=== PATIENT | male | born 1950 | race African-American/Black ===

== ENCOUNTER 2017-12-18 11:41 | Emergency (ER) | payer OTHER ==
[~2017-12-18] VITALS: Ht 185.4 cm; Wt 163.3 kg
[2017-12-18] MEDS ORDERED: IPRATRPIUM/ALBUTEROL 0.5/2.5MG 3 ML NEBU. NEB ONE (12:00)
--- NOTE | 2017-12-18 12:16 | RAD ---
INDICATION: Short of air. TECHNIQUE: Upright portable chest radiograph was obtained. No comparison is available. FINDINGS: There is left basilar atelectasis or less likely infiltrate. There is a band of linear atelectasis in the right midlung field as well. This could also be a small amount of fluid along the fissure. The heart is not enlarged and there is no heart failure. Bony structures are intact. Leads overlie the patient. IMPRESSION: Left basilar atelectasis or less likely infiltrate, mild. Band of atelectasis in the right midlung field as well. Electronically signed by: Pete Osorio MD (12/18/2017 12:13 PM) [id number]
[2017-12-18 12:24] LABS: BASO # 0.1 x10^3/uL (0.0-0.2); BASO % 1 % (0-3); EOS # 0.3 x10^3/uL (0.0-0.7); EOS % 2 % (0-3); HEMATOCRIT 30.7 % (39.0-53.0); HEMOGLOBIN 9.7 g/dL (13.0-17.5); LYMPH # 2.4 x10^3/uL (1.0-4.8); LYMPH % 19 % (24-48); MEAN CORPUSCULAR HEMOGLOBIN 23 pg (25-35); MEAN CORPUSCULAR HGB CONC 31 g/dL (31-37); MEAN CORPUSCULAR VOLUME 72 fL (79-100); MONO # 1.4 x10^3/uL (0.0-1.1); MONO % 11 % (0-9); NEUT # 8.7 x10^3uL (1.8-7.7); NEUT % 68 % (31-73); PLATELET COUNT 296 x10^3/uL (140-400); RED CELL DISTRIBUTION WIDTH 21.9 % (11.5-14.5); WHITE BLOOD COUNT 12.8 x10^3/uL (4.0-11.0)
[2017-12-18 12:49] LABS: ALBUMIN 2.9 g/dL (3.4-5.0); CALCIUM 9.9 mg/dL (8.5-10.1); CREATININE 1.9 mg/dL (0.7-1.3); DIRECT BILIRUBIN 0.1 mg/dL (0.0-0.2); GFR 43.3; POTASSIUM 4.2 mmol/L (3.5-5.1); TOTAL BILIRUBIN 0.3 mg/dL (0.2-1.0); TOTAL PROTEIN 7.3 g/dL (6.4-8.2)
[2017-12-18 12:58] LABS: HYPOCHROMIA MOD; PLT ESTIMATE ADEQUATE (ADEQUATE)
[2017-12-18 12:59] LABS: ANISOCYTOSIS MOD; MICROCYTOSIS SLIGHT; POLYCHROMASIA SLIGHT
[2017-12-18 13:02] LABS: OVALOCYTES OCC; TEAR DROP CELLS OCC
[2017-12-18] MEDS ORDERED: PRED50TA PO (14:01)
--- NOTE | 2017-12-18 14:02 | PHYS DOC ---
Past History Past Medical History: CHF, COPD, Diabetes, Hypertension, Stroke Past Surgical History: Cholecystectomy Alcohol Use: None Drug Use: None Adult General Chief Complaint Chief Complaint: SHORTNESS OF BREATH HPI HPI 66 yo M with a hx of copd, dm, hld, chf, and cad presenting to the ED today with worsening SOA. He is SOA on exertion. Alleviated by rest. He denies any chest pain or chest tightness. He shortness of breath is been going on for about a week but is worsened over the past few days. He has been taking 60 mg of furosemide at home for his CHF. Review of systems is negative for chest pain or tightness neck pain back pain or shoulder pain. He denies epigastric abdominal pain. He denies fevers chills diaphoresis nausea or vomiting. All other review of systems is negative unless otherwise noted in history of present illness. ED course: 66-year-old male presenting the emergency department today with worsening shortness of breath. On arrival the patient's afebrile with a normal heart rate. Blood pressure within normal limits. Saturating 96% on room air. On examination he is breathing comfortably. Nontoxic. Lungs have wheezing bilaterally with prolonged after a phase. No crackles. No JVD present in the neck. Regular rate and rhythm on cardiac auscultation. Abdomen is soft and nontender. 1+ edema in the legs. EKG obtained and reviewed by myself shows sinus rhythm with a regular rate. ST segments are congruent. Variable baseline in lead aVF but the second complex shows isoelectric baseline. No previous available at this time. Blood work obtained which shows mild nonspecific leukocytosis. Chest x-ray read by our radiologist who favors atelectasis but cannot rule out infiltrate. Clinically, the patient does not have a fever he does not have productive sputum. I feel that infiltrate is less likely as well clinically. The patient was given a DuoNeb in the emergency department which improved his symptoms significantly. Blood work shows minimally elevated proBNP without baseline for comparison. Creatinine also mildly elevated without baseline for comparison. I offered to admit the patient to the hospital for serial troponins and IV corticosteroids for treatment for COPD exacerbation however the patient declined and desires to go home. We will prescribe the patient oral corticosteroids. I encouraged him to use his nebulizer and follow up with his doctor in a few days.The patient has been examined and was not found to have an emergency medical condition. The patient was then discharged home in stable condition to follow up with their primary care physician over the next 2-3 days. They were to return if their symptoms worsened or if they were concerned for any reason. [id number] discharge instructions and return precautions were given. Patient's questions were answered to their satisfaction. Patient is comfortable with plan. Review of Systems Review of Systems SEE ABOVE. Current Medications Current Medications Current Medications Medications (Trade) Dose Ordered Sig/Kayla Start Time Stop Time Status Last Admin Dose Admin Albuterol/ Ipratropium (Duoneb) 3 ml 1X ONCE 12/18/17 12:00 12/18/17 12:01 DC 12/18/17 11:55 3 ML Allergies Allergies Allergies Coded Allergies Type Severity Reaction Last Updated Verified acetaminophen Allergy Intermediate 12/18/17 Yes hydrocodone Allergy Intermediate 12/18/17 Yes penicillin G Allergy Intermediate 12/18/17 Yes Physical Exam Physical Exam SEE ABOVE Constitutional: Well developed, well nourished, no acute distress, non-toxic appearance. [] HENT: Normocephalic, atraumatic, bilateral external ears normal, oropharynx moist, no oral exudates, nose normal. [] Eyes: PERRLA, EOMI, conjunctiva normal, no discharge. [] Neck: Normal range of motion, no tenderness, supple, no stridor. [] Cardiovascular:Heart rate regular rhythm, no murmur [] Lungs & Thorax: Wheezing bilaterally without crackles. Abdomen: Bowel sounds normal, soft, no tenderness, no masses, no pulsatile masses. [] Skin: Warm, dry, no erythema, no rash. [] Back: No tenderness, no CVA tenderness. [] Extremities: No tenderness, no cyanosis, no clubbing, ROM intact, no edema. [] Neurologic: Alert and oriented X 3, normal motor function, normal sensory function, no focal deficits noted. [] Psychologic: Affect normal, judgement normal, mood normal. [] Current Patient Data Vital Signs Vital Signs Date Time Temp Pulse Resp B/P (MAP) Pulse Ox O2 Delivery O2 Flow Rate FiO2 12/18/17 13:27 83 20 144/79 (100) 98 Room Air 12/18/17 11:56 98.0 Lab Results Laboratory Tests Test 12/18/17 12:13 White Blood Count 12.8 x10^3/uL (4.0-11.0) H Red Blood Count 4.30 x10^6/uL (4.30-5.70) Hemoglobin 9.7 g/dL (13.0-17.5) L Hematocrit 30.7 % (39.0-53.0) L Mean Corpuscular Volume 72 fL (79-100) L Mean Corpuscular Hemoglobin 23 pg (25-35) L Mean Corpuscular Hemoglobin Concent 31 g/dL (31-37) Red Cell Distribution Width 21.9 % (11.5-14.5) H Platelet Count 296 x10^3/uL (140-400) Neutrophils (%) (Auto) 68 % (31-73) Lymphocytes (%) (Auto) 19 % (24-48) L Monocytes (%) (Auto) 11 % (0-9) H Eosinophils (%) (Auto) 2 % (0-3) Basophils (%) (Auto) 1 % (0-3) Neutrophils # (Auto) 8.7 x10^3uL (1.8-7.7) H Lymphocytes # (Auto) 2.4 x10^3/uL (1.0-4.8) Monocytes # (Auto) 1.4 x10^3/uL (0.0-1.1) H Eosinophils # (Auto) 0.3 x10^3/uL (0.0-0.7) Basophils # (Auto) 0.1 x10^3/uL (0.0-0.2) Platelet Estimate Adequate (ADEQUATE) Large Platelets Occ Polychromasia Slight Hypochromasia Mod Anisocytosis Mod Microcytosis Slight Tear Drop Cells Occ Ovalocytes Occ Sodium Level 141 mmol/L (136-145) Potassium Level 4.2 mmol/L (3.5-5.1) Chloride Level 105 mmol/L (98-107) Carbon Dioxide Level 30 mmol/L (21-32) Anion Gap 6 (6-14) Blood Urea Nitrogen 25 mg/dL (8-26) Creatinine 1.9 mg/dL (0.7-1.3) H Estimated GFR (Cockcroft-Gault) 43.3 Glucose Level 107 mg/dL (70-99) H Calcium Level 9.9 mg/dL (8.5-10.1) Total Bilirubin 0.3 mg/dL (0.2-1.0) Direct Bilirubin 0.1 mg/dL (0.0-0.2) Aspartate Amino Transferase (AST) 15 U/L (15-37) Alanine Aminotransferase (ALT) 19 U/L (16-63) Alkaline Phosphatase 170 U/L (46-116) H Troponin I Quantitative < 0.017 ng/mL (0-0.055) FC-Sko-I-Type Natriuretic Peptide 504 pg/mL (0-124) H Total Protein 7.3 g/dL (6.4-8.2) Albumin 2.9 g/dL (3.4-5.0) L Lipase 157 U/L (73-393) EKG EKG [] Radiology/Procedures Radiology/Procedures [] Course & Med Decision Making Course & Med Decision Making Pertinent Labs and Imaging studies reviewed. (See chart for details) [] Dragon Disclaimer Dragon Disclaimer This electronic medical record was generated, in whole or in part, using a voice recognition dictation system. Departure Departure: Impression: Primary Impression: COPD with exacerbation Disposition: HOME, SELF-CARE Condition: STABLE Referrals: PCP,NO (PCP) Patient Instructions: Chronic Obstructive Pulmonary Disease Exacerbation, Easy- to-Read Additional Instructions: Thank you for allowing us to participate in your care today. Followup with your primary care physician in 3 days if your symptoms do not improve. Call your Primary Doctor tomorrow and inform them of your visit today. If you do not have a primary care provider you can ask for a list of our primary care providers. Return to the emergency department you have any new or concerning findings. This should be evaluated by the primary care physician and any necessary consulting services for continued management within a few days after discharge. Return to emergency room if you have any new or concerning symptoms including but not limited to fever, chills, nausea, vomiting, intractable pain, any new rashes, chest pain, shortness of air, uncontrolled bleeding, difficulty breathing, and/or vision loss. If at any time, you are having difficulty getting into your primary care doctor or a specialist, return to the emergency department. Scripts Prednisone (PREDNISONE) 50 Mg Tablet 1 TAB PO DAILY, #5 TAB Prov: JAZMIN HURD MD 12/18/17 JAZMIN HURD MD Dec 18, 2017 14:02
--- NOTE | 2017-12-18 14:03 | EKG ---
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
[2017-12-18 14:12] VITALS: BP 155/93
== END 2017-12-18 14:13 | disposition home or self-care (01) ==
LOC: ER 11:41
DX: J44.1 Chronic obstructive pulmonary disease with (acute) exacerbation (principal); E11.9 Type 2 diabetes mellitus without complications; I11.0 Hypertensive heart disease with heart failure; I50.9 Heart failure, unspecified; I25.10 Atherosclerotic heart disease of native coronary artery without angina pectoris; E78.5 Hyperlipidemia, unspecified; Z86.73 Personal history of transient ischemic attack (TIA), and cerebral infarction without residual deficits; Z94.9 Transplanted organ and tissue status, unspecified; Z88.0 Allergy status to penicillin; Z88.5 Allergy status to narcotic agent; Z88.6 Allergy status to analgesic agent
CPT/HCPCS: 36415; 71045; 80048; 80076; 83690; 83880; 84484; 85025; 93005; 94640; 99285; J7620

== ENCOUNTER 2018-04-02 06:09 | Emergency (ER) | payer MEDICARE, OTHER ==
[~2018-04-02] VITALS: Ht 185.4 cm; Wt 163.3 kg
[~2018-04-02 06:09] MED LIST: PRED50TA PO
--- NOTE | 2018-04-02 06:30 | PHYS DOC ---
Past History Past Medical History: CHF, COPD, Diabetes, Hypertension, Stroke Past Surgical History: Cholecystectomy Alcohol Use: None Drug Use: None Adult General Chief Complaint Chief Complaint: left-sided weakness HPI HPI 67-year-old male patient with history of CHF, hypertension, previous CVA, diabetes resident of [place] [facility] states he woke up at 2 AM because of severe headache as 10 over 10 and went to the bathroom without problem. Patient states he was sitting on the chair and his headache gradually improved but at 0530 the staff of jail noticed that he is having problem with left side weakness. Patient complaining of left fascial numbness and weakness of left upper and lower extremity that is worse than his usual. Review of Systems Review of Systems Constitutional: Denies fever or chills [] Eyes: Denies change in visual acuity, redness, or eye pain [] HENT: Denies nasal congestion or sore throat [] Respiratory: Denies cough or shortness of breath [] Cardiovascular: No additional information not addressed in HPI [] GI: Denies abdominal pain, nausea, vomiting, bloody stools or diarrhea [] : Denies dysuria or hematuria [] Musculoskeletal: Denies back pain or joint pain [] Integument: Denies rash or skin lesions [] Neurologic: Reports headache, focal weakness, sensory changes [] Endocrine: Denies polyuria or polydipsia [] All other systems were reviewed and found to be within normal limits, except as documented in this note. Allergies Allergies Allergies Coded Allergies Type Severity Reaction Last Updated Verified acetaminophen Allergy Intermediate 12/18/17 Yes hydrocodone Allergy Intermediate 12/18/17 Yes penicillin G Allergy Intermediate 12/18/17 Yes Physical Exam Physical Exam Constitutional: Well nourished, mild distress, non-toxic appearance. [] HENT: Normocephalic, atraumatic, oropharynx moist, no oral exudates, nose normal. [] Eyes: PERRLA, EOMI, conjunctiva normal, no discharge. [] Neck: Normal range of motion, no tenderness, supple, no stridor. [] Cardiovascular:Heart rate regular rhythm, no murmur [] Lungs & Thorax: Bilateral breath sounds clear to auscultation [] Abdomen: Bowel sounds normal, soft, no tenderness, no masses, no pulsatile masses. [] Skin: Warm, dry, no erythema, no rash. [] Back: No tenderness, no CVA tenderness. [] Extremities: No tenderness, no cyanosis, no clubbing, ROM intact, no edema. [] Neurologic: Alert and oriented X 3, very mild facial weakness left side, right lower extremities weakness and unable to hold his leg for 5 second bilaterally states he has chronic pain in right leg and never was able to use his leg, no paresthesia, NIH scale of 5 because of right lower and left lower extremity weakness and facial drooping Psychologic: Affect normal, judgement normal, mood normal. [] EKG EKG EKG interpreted by me. EKG at 0 7/10 showed normal sinus rhythm at rate of 77, poor R-wave progress in anteroseptal leads, no acute ST and T-wave abnormalities [] Radiology/Procedures Radiology/Procedures [][address] [address] IMAGING REPORT Signed PATIENT: JOHN AWAD ACCOUNT: [id number] : 1950 LOCATION: ER AGE: 67 SEX: M EXAM STATUS: REG ER ORD. PHYSICIAN: MATTHEW ADAMS MD REASON: Left side weakness, confusion PROCEDURE: CT CODE STROKE HEAD WO EXAM: CT HEAD WITHOUT CONTRAST. HISTORY: Left-sided weakness, altered mental status. TECHNIQUE: Computed tomography of the head was performed without intravenous contrast. COMPARISON: None. FINDINGS: There is no intracranial hemorrhage. Hypoattenuation within the white matter indicates moderate to severe chronic microangiopathic change. Prominence of the lateral ventricles and hemispheric sulci indicates moderate atrophy. The visualized paranasal sinuses appear clear. The orbits are unremarkable. The temporal bones are unremarkable. The calvarium reveals no suspicious lesions. IMPRESSION: 1. No acute intracranial findings. 2. Moderate atrophy and moderate to severe chronic microangiopathic white matter change. *One or more of the following individualized dose reduction techniques were utilized for this examination: 1. Automated exposure control. 2. Adjustment of the mA and/or kV according to patient size. 3. Use of iterative reconstruction technique. Electronically signed by: Barbara Tom MD (04/02/2018 6:37 AM) [facility] DICTATED AND SIGNED BY: HEMANT TOM MD DATE: 04/02/18635 CC: MATTHEW ADAMS MD; PCP,NO ~ [place] [address] IMAGING REPORT Signed PATIENT: JOHN AWAD ACCOUNT: [id number] : 1950 LOCATION: ER AGE: 67 SEX: M EXAM STATUS: REG ER ORD. PHYSICIAN: MATTHEW ADAMS MD REASON: weakness PROCEDURE: CHEST AP ONLY AP chest, 04/02/2018: HISTORY: Weakness, code stroke Comparison is made to a study from 12/18/2017. The heart is at the upper limits of normal in size. There is an unchanged linear opacity in the region of the right minor fissure compatible with scarring. There is also minimal linear scarring or atelectasis in the left base. The left hemidiaphragm is obscured by the patient's overlying abdominal pannus. No definite pulmonary consolidation is seen. There is no evidence of pleural fluid. IMPRESSION: 1. Borderline cardiomegaly. 2. Parenchymal scarring. 3. No acute infiltrates. Electronically signed by: Андрей Lemon MD (04/02/2018 7:40 AM) [facility] DICTATED AND SIGNED BY: АНДРЕЙ LEMON MD DATE: 04/02/18735 CC: MATTHEW ADAMS MD; PCP,NO ~ Course & Med Decision Making Course & Med Decision Making Pertinent Labs and Imaging studies reviewed. (See chart for details) Evaluation of patient in ER showed 67-year-old male patient brought in as a code stroke activation because of weakness of left-sided that was found at 5:30 by jail staff. Patient was able to go to the bathroom at 2 AM. Patient had NIHS of 5 that most of them was remaining from before. Patient was not a candidate for TPA because of arriving to ER after 3 hours of starting symptom. Patient was not a candidate for thrombectomy because of low NIHS and previous weakness. On-call neurologist Dr. Young was informed at 0654 and agreed with plan of care and recommended to admit patient to ICU and start aspirin. Dr. Glez accepted admission at 0658. Patient is a resident of the jail and requesting transferring to [facility]. [facility] was informed at [address] Quiles called back at 0809 and accepted transfer to [facility]. Patient had stable vital signs and his headache improved after having fentanyl. Dragon Disclaimer Dragon Disclaimer This electronic medical record was generated, in whole or in part, using a voice recognition dictation system. Departure Departure: Impression: Primary Impression: Acute focal neurological deficit Additional Impressions: Renal insufficiency Chronic cerebrovascular accident (CVA) [facility]ache [phone] Admitting Physician: Nia Glez (Accepted admission at 0658) Referrals: PCPTHANIA (PCP) Critical Care Time Critical care time was [70] minutes exclusive of procedures. Problem Qualifiers MATTHEW ADAMS MD Apr 02, 2018 06:30
[2018-04-02 06:38] LABS: HEMOGLOBIN ISTAT 11.9 gm/dL; POTASSIUM ISTAT 4.5 mmol/L (3.5-5.0)
--- NOTE | 2018-04-02 06:41 | RAD ---
EXAM: CT HEAD WITHOUT CONTRAST. HISTORY: Left-sided weakness, altered mental status. TECHNIQUE: Computed tomography of the head was performed without intravenous contrast. COMPARISON: None. FINDINGS: There is no intracranial hemorrhage. Hypoattenuation within the white matter indicates moderate to severe chronic microangiopathic change. Prominence of the lateral ventricles and hemispheric sulci indicates moderate atrophy. The visualized paranasal sinuses appear clear. The orbits are unremarkable. The temporal bones are unremarkable. The calvarium reveals no suspicious lesions. IMPRESSION: 1. No acute intracranial findings. 2. Moderate atrophy and moderate to severe chronic microangiopathic white matter change. *One or more of the following individualized dose reduction techniques were utilized for this examination: 1. Automated exposure control. 2. Adjustment of the mA and/or kV according to patient size. 3. Use of iterative reconstruction technique. Electronically signed by: Barbara Tom MD (04/02/2018 6:37 AM) [facility]
[2018-04-02 07:28] LABS: HEMATOCRIT 35.3 % (39.0-53.0); HEMOGLOBIN 11.3 g/dL (13.0-17.5); RED BLOOD COUNT 4.63 x10^6/uL (4.30-5.70); RED CELL DISTRIBUTION WIDTH 20.3 % (11.5-14.5); WHITE BLOOD COUNT 14.6 x10^3/uL (4.0-11.0)
[2018-04-02] MEDS ORDERED: ASPIRIN 81 MG TAB.CHEW PO ONE (07:30)
--- NOTE | 2018-04-02 07:44 | RAD ---
AP chest, 04/02/2018: HISTORY: Weakness, code stroke Comparison is made to a study from 12/18/2017. The heart is at the upper limits of normal in size. There is an unchanged linear opacity in the region of the right minor fissure compatible with scarring. There is also minimal linear scarring or atelectasis in the left base. The left hemidiaphragm is obscured by the patient's overlying abdominal pannus. No definite pulmonary consolidation is seen. There is no evidence of pleural fluid. IMPRESSION: 1. Borderline cardiomegaly. 2. Parenchymal scarring. 3. No acute infiltrates. Electronically signed by: Андрей Lemon MD (04/02/2018 7:40 AM) [facility]
[2018-04-02 07:48] LABS: ALBUMIN/GLOBULIN RATIO 0.9 (1.0-1.7); CALCIUM 10.6 mg/dL (8.5-10.1); CREATININE 1.7 mg/dL (0.7-1.3); POTASSIUM 4.7 mmol/L (3.5-5.1); TOTAL BILIRUBIN 0.3 mg/dL (0.2-1.0); TOTAL PROTEIN 6.3 g/dL (6.4-8.2)
[2018-04-02 08:29] VITALS: BP 131/69
--- NOTE | 2018-04-02 18:51 | EKG ---
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
== END 2018-04-02 09:14 | disposition short-term general hospital (02) ==
LOC: ER 06:09
DX: I63.8 Other cerebral infarction (principal); N28.9 Disorder of kidney and ureter, unspecified; R29.818 Other symptoms and signs involving the nervous system; R51 Headache; I11.0 Hypertensive heart disease with heart failure; E11.9 Type 2 diabetes mellitus without complications; J44.9 Chronic obstructive pulmonary disease, unspecified; Z88.6 Allergy status to analgesic agent; Z88.0 Allergy status to penicillin; Z88.5 Allergy status to narcotic agent
CPT/HCPCS: 36415; 70450; 71045; 80047; 80053; 82553; 84484; 85027; 85610; 85730; 93005; 96374; 99291; J3010

== ENCOUNTER 2018-09-06 21:56 | Inpatient (IN) | payer MEDICARE, OTHER ==
[~2018-09-06] VITALS: Ht 182.9 cm; Wt 155.7 kg
--- NOTE | 2018-09-06 21:58 | ED.ADGEN ---
Past History Past Medical History: A-Fib, Arrhythmia, CAD, CHF, COPD, CVA, Diabetes, Hypertension, Stroke Past Surgical History: Cholecystectomy Alcohol Use: None Drug Use: None Adult General Chief Complaint Chief Complaint ".. I started puking.. after eating chicken nuggets.. tonight.. "..." I could not stop... ".. " I am hurting here on this Lt. flank.. and gut area..." HPI HPI Patient is a 67 year old male in pt. at [facility] who presents with hx of Rt. flank abd.pain, hypotension, tachycardia, nausea and vomiting. Pt. currently at [facility] for re-hab. due to deconditioning. Pt. has extensive medical hx. CVA with Lt. sided deficits, Afib., DM, HTN, Morbid Obesity,Obstructive Sleep Apnea, COPD, continue tobacco use, and CHF. Pt. denies any changes is meds. . Review of Systems Review of Systems Constitutional: Denies fever or chills [] Eyes: Denies change in visual acuity, redness, or eye pain [] HENT: Denies nasal congestion or sore throat [] Respiratory: Denies cough or shortness of breath [] Cardiovascular: No additional information not addressed in HPI [] GI: Complaints of Lt side flank and abdominal pain, nausea, vomiting,. Denies bloody stools or diarrhea [] : Denies dysuria or hematuria [] Musculoskeletal: Denies back pain or joint pain [] Integument: Denies rash or skin lesions [] Neurologic: Denies headache, focal weakness or sensory changes [] Endocrine: Denies polyuria or polydipsia [] All other systems were reviewed and found to be within normal limits, except as documented in this note. Family History Family History DM, HTN Current Medications Current Medications Current Medications Medications (Trade) Dose Ordered Sig/Kayla Start Time Stop Time Status Last Admin Dose Admin Clonidine HCl (Catapres) 0.1 mg 1X ONCE 09/07/18 00:30 09/07/18 01:02 DC Famotidine (Pepcid Vial) 20 mg 1X ONCE 09/06/18 22:00 09/06/18 23:05 DC 09/06/18 22:36 20 MG Ondansetron HCl (Zofran) 4 mg PRN Q4HRS PRN 09/07/18 01:00 09/08/18 00:59 Sodium Chloride 1,000 ml @ 100 mls/hr Q10H 09/06/18 21:58 09/07/18 07:57 09/07/18 01:02 100 MLS/HR See Nursing for home meds Allergies Allergies Allergies Coded Allergies Type Severity Reaction Last Updated Verified acetaminophen Allergy Intermediate 12/18/17 Yes hydrocodone Allergy Intermediate 12/18/17 Yes penicillin G Allergy Intermediate 12/18/17 Yes Physical Exam Physical Exam Constitutional: Moderately acute distress, non-toxic appearance. [] HENT: Normocephalic, atraumatic, bilateral external ears normal, oropharynx moist, no oral exudates, nose normal. [] Eyes: PERRLA, EOMI, conjunctiva normal, no discharge. [] Neck: Normal range of motion, no tenderness, supple, no stridor. [] Cardiovascular:Tachycardia Heart rate regular rhythm, no murmur , PMI to Lt. ] Lungs & Thorax: Bilateral breath sounds equal apexes with scattered wheezes, some basilar crackles on auscultation [] Abdomen: Bowel sounds hyperactive, soft, Lt flank and abdomen tenderness, no masses, no pulsatile masses. [] Old surgery scar.s. Morbidly obese. Skin: Warm, dry, no erythema, no rash. [] Back: No tenderness, no CVA tenderness. [] Extremities: No tenderness, no cyanosis, no clubbing, ROM intact, ankle edema. [ ] Can lift Lt. leg off bed, but weak, Lt. arm weakness - these are old chronic findings from CVA per pt. Neurologic: Alert and oriented X 3, chronic Lt side deficits , decrease plantar sensory function, Pt. reports non new focal deficits . Psychologic: Affect anxious, judgement normal, mood normal. [] Current Patient Data Vital Signs Vital Signs Date Time Temp Pulse Resp B/P (MAP) Pulse Ox O2 Delivery O2 Flow Rate FiO2 09/07/18 00:30 121 18 131/76 (94) 92 2.0 09/06/18 22:27 98.5 Lab Results Laboratory Tests Test 09/06/18 21:58 09/06/18 22:10 Prothrombin Time 10.4 SEC (9.4-11.4) Prothrombin Time INR 1.0 (0.9-1.1) PTT 29 SEC (23-33) White Blood Count 13.8 x10^3/uL (4.0-11.0) H Red Blood Count 5.23 x10^6/uL (4.30-5.70) Hemoglobin 13.1 g/dL (13.0-17.5) Hematocrit 39.7 % (39.0-53.0) Mean Corpuscular Volume 76 fL (79-100) L Mean Corpuscular Hemoglobin 25 pg (25-35) Mean Corpuscular Hemoglobin Concent 33 g/dL (31-37) Red Cell Distribution Width 19.5 % (11.5-14.5) H Platelet Count 270 x10^3/uL (140-400) Neutrophils (%) (Auto) 90 % (31-73) H Lymphocytes (%) (Auto) 4 % (24-48) L Monocytes (%) (Auto) 4 % (0-9) Eosinophils (%) (Auto) 2 % (0-3) Basophils (%) (Auto) 1 % (0-3) Neutrophils # (Auto) 12.4 x10^3uL (1.8-7.7) H Lymphocytes # (Auto) 0.5 x10^3/uL (1.0-4.8) L Monocytes # (Auto) 0.5 x10^3/uL (0.0-1.1) Eosinophils # (Auto) 0.3 x10^3/uL (0.0-0.7) Basophils # (Auto) 0.1 x10^3/uL (0.0-0.2) Sodium Level 136 mmol/L (136-145) Potassium Level 4.8 mmol/L (3.5-5.1) Chloride Level 100 mmol/L (98-107) Carbon Dioxide Level 30 mmol/L (21-32) Anion Gap 6 (6-14) Blood Urea Nitrogen 27 mg/dL (8-26) H Creatinine 2.0 mg/dL (0.7-1.3) H Estimated GFR (Cockcroft-Gault) 40.7 Glucose Level 156 mg/dL (70-99) H Lactic Acid Level 1.3 mmol/L (0.4-2.0) Calcium Level 10.5 mg/dL (8.5-10.1) H Total Bilirubin 0.4 mg/dL (0.2-1.0) Direct Bilirubin 0.1 mg/dL (0.0-0.2) Aspartate Amino Transferase (AST) 19 U/L (15-37) Alanine Aminotransferase (ALT) 24 U/L (16-63) Alkaline Phosphatase 160 U/L (46-116) H Creatine Kinase 247 U/L (39-308) Troponin I Quantitative < 0.017 ng/mL (0-0.055) HK-Uyy-W-Type Natriuretic Peptide 75 pg/mL (0-124) Total Protein 7.9 g/dL (6.4-8.2) Albumin 3.1 g/dL (3.4-5.0) L Amylase Level 59 U/L (25-115) Lipase 167 U/L (73-393) EKG EKG My interpretation EKG shows sinus tachycardia at 132 bpm. There is right axis deviation. There is somewhat inferior and anterior strain pattern. But no findings acute STEMI of contralateral changes.[] Radiology/Procedures Radiology/Procedures My interpretation of chest x-ray shows cardiomegaly. Right middle lobe fissure fluid. With basilar scarring and atelectasis no obvious free air under the diaphragm.[] Non-contrast CT of abdomen shows no obvious hydronephrosis or surgical pathology. See formal report when available Course & Med Decision Making Course & Med Decision Making Pertinent Labs and Imaging studies reviewed. (See chart for details) Pt. admitted Dr. Glez for further eval. tx. [] Final Impression Final Impression 1. Nausea and Vomiting 2. Lt. Side Abd. Flank Pain 3. Diabetes -gluc.156 4. Elevated BU and and creatinine 22/2.0 5. Malnutrition 3.1 Alb. 6. Leukocytosis 13.8 7. Elevated Alk. Phos 160 8. Hypoxia- Sleeping ( Hx. sleep apnea) 9. Tobacco Use 10. Hypotension 11. Hx. Afib 12. Hypotension [] Dragon Disclaimer Dragon Disclaimer This electronic medical record was generated, in whole or in part, using a voice recognition dictation system. Dragon Disclaimer This chart was dictated in whole or in part using Voice Recognition software in a busy, high-work load, and often noisy Emergency Department environment. It may contain unintended and wholly unrecognized errors or omissions. Discharge Summary Visit Information Final Diagnosis Problems Medical Problems: (1) Nausea & vomiting Status: Acute Brief Hospital Course Allergies Allergies Coded Allergies Type Severity Reaction Last Updated Verified acetaminophen Allergy Intermediate 12/18/17 Yes hydrocodone Allergy Intermediate 12/18/17 Yes penicillin G Allergy Intermediate 12/18/17 Yes Vital Signs Vital Signs Date Time Temp Pulse Resp B/P (MAP) Pulse Ox O2 Delivery O2 Flow Rate FiO2 09/07/18 00:30 121 18 131/76 (94) 92 2.0 09/06/18 22:27 98.5 Lab Results Laboratory Tests Test 09/06/18 21:58 09/06/18 22:10 Prothrombin Time 10.4 SEC (9.4-11.4) Prothromb Time International Ratio 1.0 (0.9-1.1) Activated Partial Thromboplast Time 29 SEC (23-33) White Blood Count 13.8 x10^3/uL (4.0-11.0) Red Blood Count 5.23 x10^6/uL (4.30-5.70) Hemoglobin 13.1 g/dL (13.0-17.5) Hematocrit 39.7 % (39.0-53.0) Mean Corpuscular Volume 76 fL (79-100) Mean Corpuscular Hemoglobin 25 pg (25-35) Mean Corpuscular Hemoglobin Concent 33 g/dL (31-37) Red Cell Distribution Width 19.5 % (11.5-14.5) Platelet Count 270 x10^3/uL (140-400) Neutrophils (%) (Auto) 90 % (31-73) Lymphocytes (%) (Auto) 4 % (24-48) Monocytes (%) (Auto) 4 % (0-9) Eosinophils (%) (Auto) 2 % (0-3) Basophils (%) (Auto) 1 % (0-3) Neutrophils # (Auto) 12.4 x10^3uL (1.8-7.7) Lymphocytes # (Auto) 0.5 x10^3/uL (1.0-4.8) Monocytes # (Auto) 0.5 x10^3/uL (0.0-1.1) Eosinophils # (Auto) 0.3 x10^3/uL (0.0-0.7) Basophils # (Auto) 0.1 x10^3/uL (0.0-0.2) Sodium Level 136 mmol/L (136-145) Potassium Level 4.8 mmol/L (3.5-5.1) Chloride Level 100 mmol/L (98-107) Carbon Dioxide Level 30 mmol/L (21-32) Anion Gap 6 (6-14) Blood Urea Nitrogen 27 mg/dL (8-26) Creatinine 2.0 mg/dL (0.7-1.3) Estimated GFR (Cockcroft-Gault) 40.7 Glucose Level 156 mg/dL (70-99) Lactic Acid Level 1.3 mmol/L (0.4-2.0) Calcium Level 10.5 mg/dL (8.5-10.1) Total Bilirubin 0.4 mg/dL (0.2-1.0) Direct Bilirubin 0.1 mg/dL (0.0-0.2) Aspartate Amino Transf (AST/SGOT) 19 U/L (15-37) Alanine Aminotransferase (ALT/SGPT) 24 U/L (16-63) Alkaline Phosphatase 160 U/L (46-116) Creatine Kinase 247 U/L (39-308) Troponin I Quantitative < 0.017 ng/mL (0-0.055) NO-Avo-W-Type Natriuretic Peptide 75 pg/mL (0-124) Total Protein 7.9 g/dL (6.4-8.2) Albumin 3.1 g/dL (3.4-5.0) Amylase Level 59 U/L (25-115) Lipase 167 U/L (73-393) Brief Hospital Course Mr. Greenwood is a 67 old male from [facility] who presented with intractable Nausea, Vomiting, Hypotension, Tachycardia, Lt. Flank and Abd. Pain. Pt.Admit for serial exams. Discharge Information Condition at Discharge: Improved Dischare Medications Current Medications Sodium Chloride 1,000 ml @ 100 mls/hr Q10H IV Last administered on 09/07/18at 01:02; Admin Dose 100 MLS/HR; Start 09/06/18 at 21:58; Stop 09/07/18 at 07:57 Ondansetron HCl (Zofran) 8 mg 1X ONCE IV Last administered on 09/06/18at 22:36 ; Admin Dose 8 MG; Start 09/06/18 at 22:00; Stop 09/06/18 at 23:05; Status DC Famotidine (Pepcid Vial) 20 mg 1X ONCE IVP Last administered on 09/06/18at 22: 36; Admin Dose 20 MG; Start 09/06/18 at 22:00; Stop 09/06/18 at 23:05; Status DC Clonidine HCl (Catapres) 0.1 mg 1X ONCE PO ; Start 09/07/18 at 00:30; Stop 08/14 at 01:02; Status DC Ondansetron HCl (Zofran) 4 mg PRN Q4HRS PRN IV NAUSEA/VOMITING; Start 09/07/18 at 01:00; Stop 09/08/18 at 00:59 Active Scripts Active Prednisone 50 Mg Tablet 1 Tab PO DAILY SOCRATES PICHARDO MD Sep 06, 2018 21:58
[2018-09-06] MEDS ORDERED: FAMOTIDINE 20 MG/2 ML VIAL IVP ONE (22:00)
[2018-09-06] MEDS ORDERED: ONDANSETRON PF 4 MG/2 ML VIAL. IV ONE (22:00)
[2018-09-06 22:35] LABS: BASO # 0.1 x10^3/uL (0.0-0.2); BASO % 1 % (0-3); EOS # 0.3 x10^3/uL (0.0-0.7); EOS % 2 % (0-3); HEMATOCRIT 39.7 % (39.0-53.0); HEMOGLOBIN 13.1 g/dL (13.0-17.5); LYMPH # 0.5 x10^3/uL (1.0-4.8); LYMPH % 4 % (24-48); MEAN CORPUSCULAR HEMOGLOBIN 25 pg (25-35); MEAN CORPUSCULAR HGB CONC 33 g/dL (31-37); MEAN CORPUSCULAR VOLUME 76 fL (79-100); MONO # 0.5 x10^3/uL (0.0-1.1); MONO % 4 % (0-9); NEUT # 12.4 x10^3uL (1.8-7.7); NEUT % 90 % (31-73); PLATELET COUNT 270 x10^3/uL (140-400); RED BLOOD COUNT 5.23 x10^6/uL (4.30-5.70); RED CELL DISTRIBUTION WIDTH 19.5 % (11.5-14.5); WHITE BLOOD COUNT 13.8 x10^3/uL (4.0-11.0)
[2018-09-06] MEDS: IV NORMAL SALINE 1,000ML 1,000 ML IV SCH (22:37)
[2018-09-06 22:45] LABS: ALBUMIN 3.1 g/dL (3.4-5.0); CALCIUM 10.5 mg/dL (8.5-10.1); DIRECT BILIRUBIN 0.1 mg/dL (0.0-0.2); GFR 40.7; POTASSIUM 4.8 mmol/L (3.5-5.1); TOTAL BILIRUBIN 0.4 mg/dL (0.2-1.0); TOTAL PROTEIN 7.9 g/dL (6.4-8.2)
--- NOTE | 2018-09-06 23:27 | RAD ---
Examination: PORTABLE CHEST 1V History: Discomfort Comparison/Correlation: 04/02/2018 AP view of the chest Findings: Portable upright frontal view chest obtained. Heart size and pulmonary vascular are normal. No infiltrate or pleural effusion. Minimal left lateral basilar discoid atelectasis is present. Minimal thickening of the minor fissure noted. Impression: Mild left lateral basilar scarring or discoid atelectasis. Electronically signed by: Victor Manuel Pillai MD (09/06/2018 11:23 PM) [facility]
[2018-09-07] MEDS ORDERED: cloNIDine HCL 0.1 MG TABLET PO ONE (00:30)
--- NOTE | 2018-09-07 00:50 | RAD ---
CT abdomen and pelvis without contrast. HISTORY:, Left flank pain CT scan the abdomen pelvis was done without intravenous contrast. There is hazy atelectasis in the lung bases. There is respiratory motion artifact. There is no pleural effusion. There is hypertrophic changes in the spine. A liver lesion is not identified. Patient's had a cholecystectomy. Spleen and adrenal glands are normal. Pancreas is unremarkable. There is no mass or hydronephrosis in the left kidney. There is a small left renal cyst. There is a calcification the hilum of the right kidney probably vascular. There is no hydronephrosis. A ureteral calculus is not identified. There is no bowel obstruction or free air or ascites. Appendix is normal. Bladder is mildly distended. There is not evidence of a diverticulitis. IMPRESSION: 1. Respiratory motion artifact. 2. Degenerative changes in the spine. 3. Probable vascular calcification in the right kidney. 4. No other acute finding in the abdomen or pelvis.. 5. No left renal or ureteral calculus noted. Electronically signed by: Kranthi Cano MD (09/07/2018 12:46 AM) [facility]
[2018-09-07] MEDS ORDERED: ONDANSETRON PF 4 MG/2 ML VIAL. IV PRN (01:00)
[2018-09-07] MEDS: IV NORMAL SALINE 1,000ML 1,000 ML IV SCH (01:02)
--- NOTE | 2018-09-07 01:03 | EKG ---
[address] [address] Test Date: 2018-09-06 Test Time: 22:12:59 Pat Name: JOHN AWAD Department: Room: Gender: M Cattyman: YONG : 1950 Requested By: SOCRATES PICHARDO Order Number: [id number] Reading MD: Kade Tate Measurements Intervals [place] Rate: 132 P: 9 UT: 168 QRS: 95 QRSD: 88 T: 28 QT: 272 QTc: 406 Interpretive Statements SINUS TACHYCARDIA QRS(T) CONTOUR ABNORMALITY CONSIDER ANTERIOR INFARCT PROBABLY OLD ABNORMAL ECG Electronically Signed On 09-10-2018 9:42:38 [employer] by Kade Tate
[2018-09-07] MEDS ORDERED: IV RINGERS SOLUTION,LACTATED 1,000 ML IV ONE (01:15)
[2018-09-07] MEDS ORDERED: dilTIAZem 25 MG/5 ML VIAL IVP ONE ×2 (02:15→02:45)
--- NOTE | 2018-09-07 02:25 | EKG ---
[address] [address] Test Date: 2018-09-07 Test Time: 02:16:44 Pat Name: JOHN AWAD Department: Room: 123 A Gender: M Toe Stripper: YONG : 1950 Requested By: SOCRATES PICHARDO Order Number: [id number] Reading MD: Kade Tate Measurements Intervals [place] Rate: 118 P: 47 ND: 190 QRS: 75 QRSD: 94 T: 31 QT: 302 QTc: 425 Interpretive Statements SINUS TACHYCARDIA VENTRICULAR PREMATURE COMPLEX(ES) LEFT ATRIAL ABNORMALITY ABNORMAL ECG Electronically Signed On 09-10-2018 9:43:21 [employer] by Kade Tate
[2018-09-07 03:10] VITALS: BP 119/64
[2018-09-07] MEDS ORDERED: dilTIAZem 25 MG/5 ML VIAL IVP PRN (03:45)
[2018-09-07] MEDS ORDERED: IPRATRPIUM/ALBUTEROL 0.5/2.5MG 3 ML NEBU. ONE (05:16)
[2018-09-07 05:29] VITALS: BP 132/80
[2018-09-07] MEDS: IPRATRPIUM/ALBUTEROL 0.5/2.5MG 3 ML NEBU. NEB SCH ×4 (05:31→21:03)
[2018-09-07] MEDS ORDERED: INSU100I13 SQ (06:13)
[2018-09-07] MEDS ORDERED: BENZ-8 PO (06:13)
[2018-09-07] MEDS ORDERED: INSU100I17 SQ (06:13)
[2018-09-07] MEDS ORDERED: GUAI400T63 PO (06:13)
[2018-09-07] MEDS ORDERED: SPIR25TA5 PO (06:13)
[2018-09-07] MEDS ORDERED: FLUT16SP21 NS (06:13)
[2018-09-07] MEDS ORDERED: TAMS0.4C2 PO (06:13)
[2018-09-07] MEDS ORDERED: IPRA3AMP29 NEB (06:13)
[2018-09-07] MEDS ORDERED: SERT100T PO (06:13)
[2018-09-07] MEDS ORDERED: GUAI5SYR PO (06:13)
[2018-09-07] MEDS ORDERED: ATOR40TA59 PO (06:13)
[2018-09-07] MEDS ORDERED: GABA-585 PO (06:13)
[2018-09-07] MEDS ORDERED: NICO1PAT21 TD (06:13)
[2018-09-07] MEDS ORDERED: ACET325T9 PO ×2 (06:13)
[2018-09-07] MEDS ORDERED: FURO20TA3 PO (06:13)
[2018-09-07] MEDS ORDERED: AMLO10TA6 PO (06:13)
[2018-09-07] MEDS ORDERED: ASPI81TA50 PO (06:13)
[2018-09-07] MEDS ORDERED: ENOX40DI SQ (06:13)
[2018-09-07] MEDS ORDERED: ALLO100T PO (06:13)
[2018-09-07] MEDS ORDERED: LISI-338 PO (06:13)
[2018-09-07] MEDS ORDERED: BENZ1LOZ48 MM (06:14)
[2018-09-07] MEDS ORDERED: POLY119P4 PO (06:14)
[2018-09-07] MEDS ORDERED: NICOTINE 7MG PATCH. TD SCH (09:00)
[2018-09-07 10:57] VITALS: BP 120/62
[2018-09-07] MEDS ORDERED: ACETAMINOPHEN 325 MG TABLET PO PRN (13:30)
--- NOTE | 2018-09-07 13:55 | HP ---
ADMIT DATE: 09/07/2018 HISTORY OF PRESENT ILLNESS: The patient is a 67-year-old -[place] male patient, who apparently a [facility] and at the [facility], who presented to the Emergency Room with right flank abdominal pain, hypotension, tachycardia, nausea and vomiting. [facility] is currently at [facility] for [facility] due to deconditioning. He has extensive medical history. He is also known to have right middle cerebral artery territory infarct left-sided weakness, was seen in the Emergency Room, was extensively investigated and was found to have mild leukocytosis, impaired kidney function. He has had a chest x-ray, which showed mild left lateral basilar scarring or discoid atelectasis and he has had CT scan of the abdomen and pelvis without contrast, which basically showed that there is hazy atelectasis in lung bases. There is respiratory motion artifact. There is no pleural effusion. There are hypertrophic changes in the spine. Liver lesion is not identified. The patient has had cholecystectomy. Spleen and adrenal glands are normal. Pancreas is unremarkable. There is no mass or hydronephrosis in the left kidney. There is small left renal cyst. There is calcification in the hilum of the right kidney, probably vascular. There is no hydronephrosis. Ureteral calculus is not identified. There is no bowel obstruction or free air or ascites. Appendix is normal. Bladder is mildly distended. There is no evidence of diverticulitis. He apparently was also found his EKG showed that he was in sinus tachycardia with a heart rate of 132 beats per minute with right axis deviation, but no ST segment elevation or depression. He was diagnosed with recurrent bouts of nausea and vomiting, impaired kidney function, mild leukocytosis, hypoxia. He is known to have obstructive sleep apnea for which he is on CPAP, history of AFib and hypertension. PAST MEDICAL HISTORY: Significant for atrial fibrillation, coronary artery disease, congestive heart failure, COPD, cerebrovascular accident, diabetes, hypertension, and left-sided hemiplegia. PAST SURGICAL HISTORY: Significant for cholecystectomy. ALLERGIES: He is allergic to ACETAMINOPHEN, HYDROCODONE, and PENICILLIN G. MEDICATIONS: He is currently on following medications: He is on ipratropium bromide, albuterol sulfate, DuoNeb 3 mL by nebulizer 4 times a day, tamsulosin 0.4 mg at bedtime, nicotine, Nicoderm patch 21 mg topically daily, Lovenox 40 mg subcutaneously daily, atorvastatin calcium 40 mg at bedtime, amlodipine 10 mg once a day, lisinopril 5 mg once a day, spironolactone 12.5 mg daily, aspirin 81 mg once a day, acetaminophen 650 mg at bedtime, acetaminophen 650 mg every 6 hours, gabapentin 200 mg twice a day, sertraline for Zoloft 100 mg daily, furosemide 20 mg daily, benzonatate 100 mg twice a day, guaifenesin dextromethorphan 5 mL twice a day, fluticasone propionate 2 sprays to each nostril daily, Cepacol sore throat lozenges 1 every 2 hours, polyethylene glycol 17 grams daily. He is on NovoLog insulin 12 units before meals and Lantus insulin 28 units at bedtime, allopurinol 200 mg once a day. FAMILY HISTORY: Unremarkable. SOCIAL HISTORY: He is currently a resident at [facility]. He apparently continued to smoke. He does not drink alcohol or use any recreational drugs. REVIEW OF SYSTEMS: As per history of present illness. PHYSICAL EXAMINATION: GENERAL: On arrival to the Emergency Room, the patient showed no pallor, jaundice, cyanosis, or thyromegaly. No jugular venous distension. No limb edema. VITAL SIGNS: His heart rate was 138, blood pressure was 131/76, temperature was 98.5, respiratory rate was 18, and oxygen saturation was 92%. HEAD, EYES, EARS, NOSE, AND THROAT: Showed normocephalic, atraumatic. NECK: Supple. HEART: Showed normal first and second heart sounds with no gallop, rub or murmur. CHEST: Clear to auscultation. No crepitation or rhonchi. ABDOMEN: Distended, soft, nontender. No guarding or rigidity. No organomegaly. All hernial orifice intact. Bowel sounds normal. NEUROLOGIC: He was awake, alert, responding appropriately. All cranial nerves intact. EXTREMITIES: He moves extremities without difficulty. He is also apparently mostly bed bound, wheelchair bound. He managed to transfer from bed to wheelchair and vice versa has not been able to walk. LABORATORY DATA: On arrival showed a white cell count 13,800, hemoglobin 13, hematocrit 39, MCV 76, and platelet count of 270,000. His chemistry showed a serum sodium 136, potassium 4.8, chloride 100, bicarbonate 30, anion gap of 6, BUN 27, creatinine 2, estimated GFR was 40 mL per minute, his glucose 156. Lactic acid is 1.3, calcium was 10.5. Total bilirubin, AST, ALT, alkaline phosphatase were normal. Total protein was 7.9, albumin was 3.1. His beta natriuretic peptide was 75. First set of cardiac enzymes showed the troponin to be less than 0.017. His prothrombin time was 10.4, INR of 1, aPTT was 29. His chest x-ray showed that the heart size and pulmonary vasculature are normal. No infiltrate or pleural effusion minimal, left lateral basilar discoid atelectasis present. Minimal thickening of the minor fissure noted. Given his right flank pain he underwent CT scan of the abdomen and pelvis without contrast, which showed that there is probable vascular calcification of the right kidney. No other acute finding in the abdomen or pelvis. No left renal or ureteral calculus noted. The patient was admitted with recurrent bouts of cough with yellow sputum, nausea and vomiting and acute on chronic kidney injury, type 2 diabetes, hypoxia, history of tobacco use, history of atrial fibrillation, hypertension. PLAN: My plan is to continue all his medication. I will start him on antibiotic for possible acute bronchitis and chronic obstructive pulmonary disease exacerbation. I also arrange for him to have blood gases to make sure that he is not retaining carbon dioxide. I will hold his diuretics for now, continue to monitor his insulin. Continue with DVT prophylaxis. MELL ANDERSEN MD DR: TEODORA/hali JOB#: [id number] / [id number]
[2018-09-07] MEDS ORDERED: ENOXAPARIN 40 MG/0.4 ML SYRINGE. SQ SCH (14:00)
[2018-09-07 14:18] LABS: BGAS PH 7.3 (7.35-7.46)
[2018-09-07 15:25] VITALS: BP 134/76
[2018-09-07] MEDS ORDERED: IPRATRPIUM/ALBUTEROL 0.5/2.5MG 3 ML NEBU. NEB SCH (17:00)
[2018-09-07] MEDS: INSULIN LISPRO 300 UNITS/3 ML INSULN.PEN. SQ SCH (17:00)
[2018-09-07 19:55] VITALS: BP 143/75
[2018-09-07] MEDS: GABAPENTIN 100 MG CAPSULE. PO SCH (21:44)
[2018-09-07] MEDS: ACETAMINOPHEN 325 MG TABLET PO SCH (21:44)
[2018-09-07] MEDS: INSULIN GLARGINE 300 UNITS/3 ML INSULN.PEN. SQ SCH (21:44)
[2018-09-07] MEDS: ATORVASTATIN CALCIUM 20 MG TABLET PO SCH (21:45)
[2018-09-07] MEDS ORDERED: MINERAL OIL/PETROLATUM TOPICAL CREAM 113GM JAR. TP PRN (22:15)
[2018-09-07 23:26] VITALS: BP 109/75
[2018-09-08] MEDS: IPRATRPIUM/ALBUTEROL 0.5/2.5MG 3 ML NEBU. NEB SCH ×4 (05:53→20:46)
[2018-09-08 06:42] VITALS: BP 135/74
[2018-09-08 06:51] LABS: BASO % 0 % (0-3); EOS # 0.3 x10^3/uL (0.0-0.7); EOS % 4 % (0-3); HEMATOCRIT 35.1 % (39.0-53.0); HEMOGLOBIN 11.1 g/dL (13.0-17.5); LYMPH # 1.3 x10^3/uL (1.0-4.8); LYMPH % 18 % (24-48); MEAN CORPUSCULAR HEMOGLOBIN 25 pg (25-35); MEAN CORPUSCULAR HGB CONC 32 g/dL (31-37); MEAN CORPUSCULAR VOLUME 80 fL (79-100); MONO # 1.2 x10^3/uL (0.0-1.1); MONO % 17 % (0-9); NEUT # 4.6 x10^3uL (1.8-7.7); NEUT % 62 % (31-73); PLATELET COUNT 201 x10^3/uL (140-400); RED BLOOD COUNT 4.39 x10^6/uL (4.30-5.70); RED CELL DISTRIBUTION WIDTH 19.8 % (11.5-14.5); WHITE BLOOD COUNT 7.4 x10^3/uL (4.0-11.0)
[2018-09-08 06:55] LABS: ALBUMIN 2.3 g/dL (3.4-5.0); ALBUMIN/GLOBULIN RATIO 0.6 (1.0-1.7); CALCIUM 9.1 mg/dL (8.5-10.1); CREATININE 1.7 mg/dL (0.7-1.3); TOTAL BILIRUBIN 0.2 mg/dL (0.2-1.0); TOTAL PROTEIN 6.3 g/dL (6.4-8.2)
[2018-09-08] MEDS: INSULIN LISPRO 300 UNITS/3 ML INSULN.PEN. SQ SCH ×3 (08:00→17:07)
[2018-09-08] MEDS: NICOTINE 21MG PATCH. TD SCH (08:31)
[2018-09-08] MEDS: TAMSULOSIN 0.4 MG CAP.ER.24H. PO SCH (08:31)
[2018-09-08] MEDS: GABAPENTIN 100 MG CAPSULE. PO SCH ×2 (08:31→20:31)
[2018-09-08] MEDS: SPIRONOLACTONE 25 MG TABLET PO SCH (08:31)
[2018-09-08] MEDS: ASPIRIN ENTERIC COATED 81 MG TABLET.DR. PO SCH (08:31)
[2018-09-08] MEDS: ALLOPURINOL 100 MG TABLET. PO SCH (08:31)
[2018-09-08] MEDS: guaiFENesin DM 200MG/20MG 10 ML SYRUP PO PRN (08:32)
[2018-09-08] MEDS: BENZONATATE 100 MG CAPSULE. PO PRN (08:32)
[2018-09-08] MEDS: LISINOPRIL 5 MG TABLET. PO SCH (08:32)
[2018-09-08] MEDS: SERTRALINE 100 MG TABLET. PO SCH (08:32)
[2018-09-08] MEDS: BENZOCAINE/MENTHOL LOZNGE 18'S BOX. MM PRN ×2 (08:33→17:01)
[2018-09-08] MEDS ORDERED: amLODIPine BESYLATE 10 MG TABLET PO SCH (09:00)
[2018-09-08] MEDS: DICLOFENAC SODIUM 1% TOPICAL GEL 100GM TUBE. TP SCH (09:00)
[2018-09-08] MEDS ORDERED: ENOXAPARIN 40 MG/0.4 ML SYRINGE. SQ SCH (09:00)
[2018-09-08] MEDS ORDERED: POLYETHYLENE GLYCOL 3350 17 GM PACKET. PO PRN (09:00)
[2018-09-08] MEDS: FLUTICASONE 50MCG/NASAL SPRAY 16GM BOTTLE. NS SCH (09:35)
--- NOTE | 2018-09-08 10:06 | PN ---
DATE: 09/08/2018 HISTORY OF PRESENT ILLNESS: The patient is resting, slightly propped up in bed, in no apparent respiratory distress. He stated he feels generally better, although he continued to have cough with yellowish sputum. Denied any chest pain. He has multiple episodes of loose bowel movement. Fortunately so far we have not been able to get a sample to send for a C. diff and culture and sensitivity. PHYSICAL EXAMINATION: GENERAL: When I examined him this morning he was sitting, slightly propped up in bed, slightly pale, but no jaundice or cyanosis. No lymphadenopathy, no thyromegaly, no jugular venous distension. No lower limb edema. VITAL SIGNS: His heart rate was 102, blood pressure was 135/74, temperature was 98.4, respiratory rate 24 and oxygen saturation was 97% on 2 liters of oxygen by nasal cannula. HEAD, EYES, EARS, NOSE, AND THROAT: Showed normocephalic and atraumatic. NECK: Supple. HEART: Showed normal first and second heart sounds with no gallop, rub or murmur. CHEST: Clear to auscultation. No crepitation or rhonchi. ABDOMEN: Distended, soft, nontender. No guarding or rigidity. No organomegaly. All hernial orifice intact. Bowel sounds normal. NEUROLOGIC: He is awake, alert, responding appropriately. All cranial nerves intact. He moves upper extremities without difficulty. He is mostly bedbound, chair bound. ASSESSMENT: 1. Chronic obstructive pulmonary disease exacerbation. 2. Acute hypoxic hypercapnic respiratory failure. 3. Acute bronchitis. 4. The patient is known to have congestive heart failure as well as atrial fibrillation. In fact, when he arrived yesterday his heart rate was 130. His blood pressure was actually low at 70 systolic. PLAN: My plan is to continue with all his current plan of management. We will await to get the result of stool for C. diff and we started empirically on oral vancomycin. Meanwhile, we continue with levofloxacin. Continue with bronchodilators and Lasix. Continue with DVT prophylaxis. Continue to monitor his blood sugar and adjust insulin as needed. He is not on any rate control. MELL ANDERSEN MD DR: TEODORA/hali JOB#: [id number] / [id number]
[2018-09-08 11:26] VITALS: BP 134/73
[2018-09-08 15:07] VITALS: BP 133/74
[2018-09-08 19:46] VITALS: BP 126/74
[2018-09-08] MEDS: ENOXAPARIN 40 MG/0.4 ML SYRINGE. SQ SCH (20:30)
[2018-09-08] MEDS: ACETAMINOPHEN 325 MG TABLET PO SCH (20:31)
[2018-09-08] MEDS: LACTOBACILLUS RHAMNOSUS GG 1 CAPSULE. PO SCH (20:31)
[2018-09-08] MEDS: ATORVASTATIN CALCIUM 20 MG TABLET PO SCH (20:31)
[2018-09-08] MEDS: INSULIN GLARGINE 300 UNITS/3 ML INSULN.PEN. SQ SCH (20:42)
[2018-09-08 22:46] VITALS: BP 124/79
[2018-09-09] MEDS: guaiFENesin DM 200MG/20MG 10 ML SYRUP PO PRN (04:54)
[2018-09-09] MEDS: IPRATRPIUM/ALBUTEROL 0.5/2.5MG 3 ML NEBU. NEB SCH ×4 (05:43→20:07)
[2018-09-09 05:47] VITALS: BP 126/76
[2018-09-09 06:43] LABS: HEMATOCRIT 35.7 % (39.0-53.0); HEMOGLOBIN 11.5 g/dL (13.0-17.5); RED BLOOD COUNT 4.56 x10^6/uL (4.30-5.70); RED CELL DISTRIBUTION WIDTH 19.2 % (11.5-14.5); WHITE BLOOD COUNT 7.8 x10^3/uL (4.0-11.0)
[2018-09-09 07:11] LABS: CALCIUM 9.5 mg/dL (8.5-10.1); CREATININE 1.5 mg/dL (0.7-1.3); GFR 56.7; MAGNESIUM 1.5 mg/dL (1.8-2.4); POTASSIUM 3.8 mmol/L (3.5-5.1)
[2018-09-09] MEDS: BENZONATATE 100 MG CAPSULE. PO PRN (07:50)
[2018-09-09] MEDS: LACTOBACILLUS RHAMNOSUS GG 1 CAPSULE. PO SCH ×2 (08:31→19:38)
[2018-09-09] MEDS: GABAPENTIN 100 MG CAPSULE. PO SCH ×2 (08:31→19:39)
[2018-09-09] MEDS: SERTRALINE 100 MG TABLET. PO SCH (08:32)
[2018-09-09] MEDS: LISINOPRIL 5 MG TABLET. PO SCH (08:32)
[2018-09-09] MEDS: ALLOPURINOL 100 MG TABLET. PO SCH (08:32)
[2018-09-09] MEDS: TAMSULOSIN 0.4 MG CAP.ER.24H. PO SCH (08:32)
[2018-09-09] MEDS: ASPIRIN ENTERIC COATED 81 MG TABLET.DR. PO SCH (08:32)
[2018-09-09] MEDS: SPIRONOLACTONE 25 MG TABLET PO SCH (08:35)
[2018-09-09] MEDS: FLUTICASONE 50MCG/NASAL SPRAY 16GM BOTTLE. NS SCH (08:35)
[2018-09-09] MEDS: NICOTINE 21MG PATCH. TD SCH (08:36)
[2018-09-09] MEDS: ENOXAPARIN 40 MG/0.4 ML SYRINGE. SQ SCH ×2 (08:36→19:38)
[2018-09-09] MEDS: DICLOFENAC SODIUM 1% TOPICAL GEL 100GM TUBE. TP SCH (08:51)
[2018-09-09] MEDS: INSULIN LISPRO 300 UNITS/3 ML INSULN.PEN. SQ SCH ×3 (08:51→17:29)
[2018-09-09 11:05] VITALS: BP 117/68
[2018-09-09] MEDS ORDERED: MINERAL OIL/PETROLATUM TOPICAL CREAM 113GM JAR. TP PRN (13:15)
[2018-09-09] MEDS: LIDOCAINE (700MG/PATCH) PATCH. TD SCH (14:21)
[2018-09-09 15:20] VITALS: BP 142/76
--- NOTE | 2018-09-09 15:49 | RAD ---
Left RIBS with chest, 3 views, 09/09/2018: HISTORY: Left chest pain No left rib fracture or bony abnormality is detected. The heart size is normal. There is mild linear atelectasis and/or scarring in the lower chest bilaterally. There is no evidence of pleural fluid or pneumothorax. IMPRESSION: 1. No acute left rib abnormality is detected. 2. Mild bibasilar linear atelectasis and/or scarring. Electronically signed by: Андрей Lemon MD (09/09/2018 3:44 PM) [facility]
--- NOTE | 2018-09-09 16:29 | PDOC2 ---
HOWARD RODRIGUEZ PONY ROLL FINISHER 09/09/18 1629: CONSULT Date of Admission DATE: 09/09/18 TIME: 16:22 Reason for Consult: atrial fibrillation with RVR Problem List Problems Medical Problems: (1) Nausea & vomiting Status: Acute History of Present Illness Mr Greenwood is a 67 year old male who resides [facility]. He presented to the ED with complaints of Rt. flank and abd.pain, hypotension, tachycardia, nausea and vomiting. He has a history of atrial fibrillation and was noted to be in rapid ventricular response so consult was called. His meds were adjusted and today he is in a sinus tachycardia. He denies chest pain but reports palpitations/pounding a couple days ago which has now resolved. He denies any increased dyspnea currently but does report occasional orthopnea. He reports chronic edema which is currently improved. He reports seeing a nonprofit fundraiser about 11 years ago. Past Medical History atrial fibrillation, HTN, congestive heart failure, COPD, cerebrovascular accident with left sided hemiplegia, BERNADETTE, CMP, BPH, diabetes, GERD, Gout, hyperthyroidism, CKD, osteoarthritis, affective disorder Past Surgical History cholecystectomy Family History unremarkable Social History resident at [facility] at [facility]. +smoker, denies ETOH or illicit drugs. Current Medications Current Medications Sodium Chloride 1,000 ml @ 100 mls/hr Q10H IV Last administered on 09/07/18at 01:02; Start 09/06/18 at 21:58; Stop 09/07/18 at 07:57; Status DC Ondansetron HCl (Zofran) 8 mg 1X ONCE IV Last administered on 09/06/18at 22:36 ; Start 09/06/18 at 22:00; Stop 09/06/18 at 23:05; Status DC Famotidine (Pepcid Vial) 20 mg 1X ONCE IVP Last administered on 09/06/18at 22: 36; Start 09/06/18 at 22:00; Stop 09/06/18 at 23:05; Status DC Clonidine HCl (Catapres) 0.1 mg 1X ONCE PO ; Start 09/07/18 at 00:30; Stop 08/14 at 01:02; Status DC Nicotine (Nicoderm Cq 7mg) 1 patch DAILY TD Last administered on 09/07/18at 08: 49; Start 09/07/18 at 09:00; Stop 09/07/18 at 14:01; Status DC Ondansetron HCl (Zofran) 4 mg PRN Q4HRS PRN IV NAUSEA/VOMITING; Start 09/07/18 at 01:00; Stop 09/08/18 at 00:59; Status DC Albuterol/ Ipratropium (Duoneb) 3 ml RTQID NEB Last administered on 09/07/18at 21:03; Start 09/07/18 at 08:00; Stop 09/08/18 at 08:00; Status DC Lactated Ringer's 1,000 ml @ 160 mls/hr 1X ONCE IV Last administered on at 03:22; Start 09/07/18 at 01:15; Stop 09/07/18 at 07:29; Status DC Levofloxacin/ Dextrose 100 ml @ 100 mls/hr DAILY06 IV Last administered on at 05:16; Start 09/08/18 at 06:00 Levofloxacin/ Dextrose 100 ml @ 100 mls/hr ONCE ONCE IV Last administered on 09/07/18at 02:10; Start 09/07/18 at 02:00; Stop 09/07/18 at 02:59; Status DC Diltiazem HCl (Cardizem Iv Push) 10 mg 1X ONCE IVP Last administered on at 02:09; Start 09/07/18 at 02:15; Stop 09/07/18 at 02:47; Status DC Diltiazem HCl (Cardizem Iv Push) 10 mg 1X ONCE IVP ; Start 09/07/18 at 02:45; Stop 09/07/18 at 02:47; Status DC Diltiazem HCl (Cardizem Iv Push) 10 mg 1X PRN PRN IVP TACYCARDIA; Start at 03:45; Stop 09/07/18 at 09:00; Status DC Albuterol/ Ipratropium (Duoneb) 3 ml STK-MED ONCE .ROUTE Last administered on at 05:30; Start 09/07/18 at 05:16; Stop 09/07/18 at 05:18; Status DC Acetaminophen (Tylenol) 650 mg HS PO Last administered on 09/08/18at 20:31; Start 09/07/18 at 21:00 Acetaminophen (Tylenol) 650 mg PRN Q6HRS PRN PO PAIN Last administered on 10:40; Start 09/07/18 at 13:30 Throat Lozenges (Cepacol Sore Throat Lozenge) 1 marcelo PRN Q2HR PRN MM Sore throat Last administered on 09/08/18 17:01; Start 09/07/18 at 13:30 Gabapentin (Neurontin) 200 mg BID PO Last administered on 09/09/18 08:31; Start 09/07/18 at 21:00 Guaifenesin (Robitussin Dm) 5 ml PRN BID PRN PO COUGH Last administered on 09/09 04:54; Start 09/07/18 at 13:30 Insulin Glargine (Lantus) 28 units QHS SQ Last administered on 09/08/18 20:42 ; Start 09/07/18 at 21:00 Albuterol/ Ipratropium (Duoneb) 3 ml QID NEB ; Start 09/07/18 at 17:00; Stop 08/14 at 17:00; Status DC Sertraline HCl (Zoloft) 100 mg DAILY PO Last administered on 09/09/18 08:32; Start 09/08/18 at 09:00 Tamsulosin HCl (Flomax) 0.4 mg DAILY PO Last administered on 09/09/18 08:32; Start 09/08/18 at 09:00 Allopurinol (Zyloprim) 200 mg DAILY PO Last administered on 09/09/18 08:32; Start 09/08/18 at 09:00 Amlodipine Besylate (Norvasc) 10 mg DAILY PO Last administered on 09/08/18 08: 33; Start 09/08/18 at 09:00; Stop 09/08/18 at 11:46; Status DC Aspirin (Aspirin Enteric Coated) 81 mg DAILYWBKFT PO Last administered on 08:32; Start 09/08/18 at 08:00 Atorvastatin Calcium (Lipitor) 40 mg QHS PO Last administered on 09/08/18 20: 31; Start 09/07/18 at 21:00 Benzonatate (Tessalon Perle) 100 mg PRN BID PRN PO COUGH Last administered on 1 /14/19at 07:50; Start 09/07/18 at 14:00 Enoxaparin Sodium (Lovenox 40mg Syringe) 40 mg DAILY SQ ; Start 09/07/18 at 14: 00; Stop 09/07/18 at 14:00; Status DC Fluticasone Propionate (Flonase) 2 spray DAILY NS Last administered on at 08:35; Start 09/08/18 at 09:00 Guaifenesin (Guaifenesin) 400 mg QID PO Last administered on 09/09/18at 12:22; Start 09/07/18 at 17:00 Insulin Human Lispro (HumaLOG) 12 units TIDWMEALS SQ Last administered on 12:25; Start 09/07/18 at 17:00 Lisinopril (Prinivil) 5 mg DAILY PO Last administered on 09/09/18 08:32; Start 09/08/18 at 09:00 Nicotine (Nicoderm Cq 21mg) 1 patch DAILY TD Last administered on 09/09/18at 08: 36; Start 09/08/18 at 09:00 Polyethylene Glycol (miraLAX) 17 gm PRN BID PRN PO CONSTIPATION; Start at 09:00 Spironolactone (Aldactone) 12.5 mg DAILY PO Last administered on 09/09/18at 08: 35; Start 09/08/18 at 09:00 Enoxaparin Sodium (Lovenox 40mg Syringe) 40 mg DAILY SQ Last administered on at 08:30; Start 09/08/18 at 09:00; Stop 09/08/18 at 09:41; Status DC Albuterol/ Ipratropium (Duoneb) 3 ml RTQID NEB Last administered on 09/09/18at 15:15; Start 09/08/18 at 08:00 Multi-Ingred Cream/Lotion/Oil/ Oint (Hydrocerin) 1 oumou PRN Q1HR PRN TP DRY SKIN / SCALING; Start 09/07/18 at 22:15 Diclofenac Sodium (Voltaren) 1 oumou DAILY TP ; Start 09/08/18 at 09:00 Enoxaparin Sodium (Lovenox 40mg Syringe) 40 mg Q12H SQ Last administered on at 08:36; Start 09/08/18 at 21:00 Lactobacillus Rhamnosus (Culturelle) 1 cap BID PO Last administered on at 08:31; Start 09/08/18 at 21:00 Diltiazem HCl (Cardizem 24hr Cd) 120 mg DAILY PO Last administered on at 08:32; Start 09/08/18 at 11:45 Multi-Ingred Cream/Lotion/Oil/ Oint (Hydrocerin) 1 oumou PRN Q1HR PRN TP DRY SKIN / SCALING; Start 09/09/18 at 13:15 Lidocaine (Lidoderm) 1 patch DAILY TD ; Start 09/10/18 at 09:00; Stop 09/10/18 at 09:00; Status DC Miscellaneous (Lidoderm Patch Removal) 1 ea QHS MC ; Start 09/09/18 at 21:00 Lidocaine (Lidoderm) 1 patch DAILY TD Last administered on 09/09/18at 14:21; Start 09/09/18 at 14:15 Fentanyl Citrate (Fentanyl 2ml Vial) 50 mcg PRN Q2HR PRN IV PAIN; Start at 14:45 Active Scripts Active Reported Miralax (Polyethylene Glycol 3350) 119 Gm Powder 17 Gm PO PRN BID PRN LAST DOSE GIVEN: DATE: TIME: NEXT DOSE DUE: DATE: TIME: Cepacol Sore Throat Lozenge (Benzocaine/Menthol) 1 Each Lozenge 1 Each MM PRN Q2HR PRN LAST DOSE GIVEN: DATE: TIME: NEXT DOSE DUE: DATE: TIME: Tylenol (Acetaminophen) 325 Mg Tablet 650 Mg PO PRN Q6HRS PRN LAST DOSE GIVEN: DATE: TIME: NEXT DOSE DUE: DATE: TIME: Guaifenesin Dm Syrup (Guaifenesin/Dextromethorphan) 5 Ml Syrup 5 Ml PO PRN BID PRN LAST DOSE GIVEN: DATE: TIME: NEXT DOSE DUE: DATE: TIME: Benzonatate 100 Mg Capsule 100 Mg PO PRN BID PRN LAST DOSE GIVEN: DATE: TIME: NEXT DOSE DUE: DATE: TIME: Lantus Solostar (Insulin Glargine,Hum.rec.anlog) 100 Unit/1 Ml Insuln.pen 28 Unit SQ QHS LAST DOSE GIVEN: DATE: TIME: NEXT DOSE DUE: DATE: TIME: Duoneb 0.5-3(2.5) Mg/3 Ml (Albuterol/Ipratropium) 3 Ml Ampul.neb 3 Ml NEB QID LAST DOSE GIVEN: DATE: TIME: NEXT DOSE DUE: DATE: TIME: Fluticasone Propionate Nasal [place] (Fluticasone Propionate) 16 Gm [place].susp 2 [place] NS DAILY LAST DOSE GIVEN: DATE: TIME: NEXT DOSE DUE: DATE: TIME: Tylenol (Acetaminophen) 325 Mg Tablet 650 Mg PO HS LAST DOSE GIVEN: DATE: TIME: NEXT DOSE DUE: DATE: TIME: Tamsulosin Hcl 0.4 Mg Cap.er.24h 0.4 Mg PO DAILY LAST DOSE GIVEN: DATE: TIME: NEXT DOSE DUE: DATE: TIME: Spironolactone 25 Mg Tablet 12.5 Mg PO DAILY LAST DOSE GIVEN: DATE: TIME: NEXT DOSE DUE: DATE: TIME: Zoloft (Sertraline Hcl) 100 Mg Tablet 100 Mg PO DAILY LAST DOSE GIVEN: DATE: TIME: NEXT DOSE DUE: DATE: TIME: NICODERM CQ 21mg (Nicotine) 1 Each Patch.td24 1 Patch TD DAILY LAST DOSE GIVEN: DATE: TIME: NEXT DOSE DUE: DATE: TIME: Lisinopril 5 Mg Tablet 5 Mg PO DAILY LAST DOSE GIVEN: DATE: TIME: NEXT DOSE DUE: DATE: TIME: Novolog Flexpen (Insulin Aspart) 100 Unit/1 Ml Insuln.pen 12 Unit SQ TIDAC LAST DOSE GIVEN: DATE: TIME: NEXT DOSE DUE: DATE: TIME: Guaifenesin 400 Mg Tablet 400 Mg PO QID LAST DOSE GIVEN: DATE: TIME: NEXT DOSE DUE: DATE: TIME: Gabapentin (Gabapentin) 100 Mg Capsule 200 Mg PO BID LAST DOSE GIVEN: DATE: TIME: NEXT DOSE DUE: DATE: TIME: Furosemide 20 Mg Tablet 20 Mg PO DAILY LAST DOSE GIVEN: DATE: TIME: NEXT DOSE DUE: DATE: TIME: Lovenox (Enoxaparin Sodium) 40 Mg/0.4 Ml Disp.syrin 40 Mg SQ DAILY LAST DOSE GIVEN: DATE: TIME: NEXT DOSE DUE: DATE: TIME: Atorvastatin Calcium 40 Mg Tablet 40 Mg PO QHS LAST DOSE GIVEN: DATE: TIME: NEXT DOSE DUE: DATE: TIME: Aspir-Low (Aspirin) 81 Mg Tablet.dr 81 Mg PO DAILY LAST DOSE GIVEN: DATE: TIME: NEXT DOSE DUE: DATE: TIME: Amlodipine Besylate 10 Mg Tablet 10 Mg PO DAILY LAST DOSE GIVEN: DATE: TIME: NEXT DOSE DUE: DATE: TIME: Allopurinol 100 Mg Tablet 200 Mg PO DAILY LAST DOSE GIVEN: DATE: TIME: NEXT DOSE DUE: DATE: TIME: Allergies: Coded Allergies: acetaminophen (Verified Allergy, Intermediate, 12/18/17) hydrocodone (Verified Allergy, Intermediate, 12/18/17) penicillin G (Verified Allergy, Intermediate, 12/18/17) Review of System as per HPI General: Alert, Oriented X3, Cooperative, No acute distress HEENT: Atraumatic Lungs: Clear to auscultation, Normal air movement Heart: Normal S1, Normal S2, Other (no gallops, clicks or rubs) Abdomen: Normal bowel sounds, Soft Extremities: Other (+ non pitting edema and skin changes consistent with venous insufficiency) VITALS Vital Signs Date Time Temp Pulse Resp B/P (MAP) Pulse Ox O2 Delivery O2 Flow Rate FiO2 09/09/18 15:20 98.0 124 18 142/76 (98) 95 Room Air 09/08/18 22:46 1.0 Labs Laboratory Tests Test 09/07/18 17:17 09/07/18 20:35 09/08/18 06:17 09/08/18 07:30 Glucose (Fingerstick) 133 mg/dL (70-99) 124 mg/dL (70-99) 112 mg/dL (70-99) White Blood Count 7.4 x10^3/uL (4.0-11.0) Red Blood Count 4.39 x10^6/uL (4.30-5.70) Hemoglobin 11.1 g/dL (13.0-17.5) Hematocrit 35.1 % (39.0-53.0) Mean Corpuscular Volume 80 fL (79-100) Mean Corpuscular Hemoglobin 25 pg (25-35) Mean Corpuscular Hemoglobin Concent 32 g/dL (31-37) Red Cell Distribution Width 19.8 % (11.5-14.5) Platelet Count 201 x10^3/uL (140-400) Neutrophils (%) (Auto) 62 % (31-73) Lymphocytes (%) (Auto) 18 % (24-48) Monocytes (%) (Auto) 17 % (0-9) Eosinophils (%) (Auto) 4 % (0-3) Basophils (%) (Auto) 0 % (0-3) Neutrophils # (Auto) 4.6 x10^3uL (1.8-7.7) Lymphocytes # (Auto) 1.3 x10^3/uL (1.0-4.8) Monocytes # (Auto) 1.2 x10^3/uL (0.0-1.1) Eosinophils # (Auto) 0.3 x10^3/uL (0.0-0.7) Basophils # (Auto) 0.0 x10^3/uL (0.0-0.2) Sodium Level 137 mmol/L (136-145) Potassium Level 4.0 mmol/L (3.5-5.1) Chloride Level 103 mmol/L (98-107) Carbon Dioxide Level 28 mmol/L (21-32) Anion Gap 6 (6-14) Blood Urea Nitrogen 23 mg/dL (8-26) Creatinine 1.7 mg/dL (0.7-1.3) Estimated GFR (Cockcroft-Gault) 49.0 BUN/Creatinine Ratio 14 (6-20) Glucose Level 115 mg/dL (70-99) Calcium Level 9.1 mg/dL (8.5-10.1) Total Bilirubin 0.2 mg/dL (0.2-1.0) Aspartate Amino Transf (AST/SGOT) 28 U/L (15-37) Alanine Aminotransferase (ALT/SGPT) 21 U/L (16-63) Alkaline Phosphatase 114 U/L (46-116) Total Protein 6.3 g/dL (6.4-8.2) Albumin 2.3 g/dL (3.4-5.0) Albumin/Globulin Ratio 0.6 (1.0-1.7) Test 09/08/18 11:35 09/08/18 11:50 09/08/18 16:33 09/08/18 20:10 Glucose (Fingerstick) 146 mg/dL (70-99) 136 mg/dL (70-99) 119 mg/dL (70-99) Clostridium difficile Toxin B Gene Negative (Negative) Test 09/09/18 06:00 09/09/18 07:40 09/09/18 11:21 White Blood Count 7.8 x10^3/uL (4.0-11.0) Red Blood Count 4.56 x10^6/uL (4.30-5.70) Hemoglobin 11.5 g/dL (13.0-17.5) Hematocrit 35.7 % (39.0-53.0) Mean Corpuscular Volume 78 fL (79-100) Mean Corpuscular Hemoglobin 25 pg (25-35) Mean Corpuscular Hemoglobin Concent 32 g/dL (31-37) Red Cell Distribution Width 19.2 % (11.5-14.5) Platelet Count 206 x10^3/uL (140-400) Sodium Level 137 mmol/L (136-145) Potassium Level 3.8 mmol/L (3.5-5.1) Chloride Level 102 mmol/L (98-107) Carbon Dioxide Level 26 mmol/L (21-32) Anion Gap 9 (6-14) Blood Urea Nitrogen 21 mg/dL (8-26) Creatinine 1.5 mg/dL (0.7-1.3) Estimated GFR (Cockcroft-Gault) 56.7 Glucose Level 135 mg/dL (70-99) Calcium Level 9.5 mg/dL (8.5-10.1) Magnesium Level 1.5 mg/dL (1.8-2.4) DI-Zur-M-Type Natriuretic Peptide 193 pg/mL (0-124) Glucose (Fingerstick) 133 mg/dL (70-99) 152 mg/dL (70-99) Images CXR - Impression: Mild left lateral basilar scarring or discoid atelectasis. Tele - sinus tachy currently. Assessment/Plan 1. atrial fibrillation with RVR - sinus tachy now. continue cardizem. poor candidate for OAC. await echo. further recs pending echo result. Follow up with [facility] the [facility]. 2. acute on chronic hypoxic hypercapnic respiratory failure secondary to COPD exacerbation - mgmt Per PCP. 3. HTN - controlled , continue current medications. Hypotension resolved. 4. diarrhea - per PCP, c diff pending 5. CKD stage 3 - per PCP MANUEL OBREGON MD 09/10/18 0741: CONSULT Assessment/Plan Patient seen and examined. Agree with UNIX ENGINEER's assessment and plan. Patient with paroxysmal atrial fibrillation, initially with rapid ventricular response presently back in sinus rhythm. Continue Cardizem. He is a poor candidate for long-term anticoagulation. Check 2-D echo to assess LV systolic function. Continue current treatment for acute COPD exacerbation per IM. Thank you for your consultation. HOWARD RODRIGUEZ APRN Sep 09, 2018 16:29 MANUEL OBREGON MD Sep 10, 2018 07:41
--- NOTE | 2018-09-09 19:29 | PN ---
DATE: 09/09/2018 SUBJECTIVE: The patient is resting slightly propped up in bed, in no apparent distress. He is awake, alert, complaining of left-sided sharp stabbing pain, worse with coughing or taking a deep breath. The output from his rectal tube is very minimal and apparently he did manage to work with physical therapy. He managed to walk with a walker, out of the room to the gym and back and sat for at least 2 hours in his chair. OBJECTIVE: GENERAL: When I examined him today, he looked somewhat pale, no jaundice, cyanosis, or thyromegaly. No jugular venous distension. No lower limb edema. VITAL SIGNS: His heart rate was 96, blood pressure was 117/68, temperature was 97.8, respiratory rate was 24, and oxygen saturation was 95% on room air. HEAD, EYES, EARS, NOSE AND THROAT: Showed he is normocephalic, atraumatic. NECK: Supple. HEART: Showed normal first and second heart sounds. No gallop, rub or murmur. CHEST: Shows central trachea, equal bilateral chest expansion, air entry, vesicular breath sounds. No crepitation or rhonchi. ABDOMEN: Distended, soft, nontender. NEUROLOGIC: He was awake, alert, responding appropriately. All cranial nerves are intact. He moves extremities without difficulty. He manages to walk with a walker with standby assist. His intake over the last 24 hours was 780, output was 1600. LABORATORY DATA: As of this morning, his white cell count is down to 7800, hemoglobin 11, hematocrit 35, MCV 78 and platelet count of 206,000. Serum sodium was 137, potassium 3.8, chloride 102, bicarbonate 26, anion gap of 9, BUN 21, creatinine 1.7, estimated GFR was 56 mL per minute, his glucose 135, calcium was 9.5, magnesium was 1.5. Beta natriuretic peptide was 193 mg/dL. His stool for C. diff toxins were negative. His nasal screen for MRSA by PCR was negative. ASSESSMENT: 1. Chronic obstructive pulmonary disease exacerbation. 2. Acute hypoxic, tachypneic, respiratory failure. 3. Acute bronchitis. 4. The patient is known to have other medical problems including: A. Congestive heart failure. B. Atrial fibrillation. PLAN: My plan is to discontinue the rectal tube. Continue with IV levofloxacin. Continue with DVT prophylaxis. Continue to monitor his blood sugar and adjust insulin as needed. We will start him on the Eucerin cream. MELL ANDERSEN MD DR: TEODORA/hali JOB#: [id number] / [id number]
[2018-09-09] MEDS: ACETAMINOPHEN 325 MG TABLET PO SCH (19:38)
[2018-09-09] MEDS: ATORVASTATIN CALCIUM 20 MG TABLET PO SCH (19:38)
[2018-09-09] MEDS: INSULIN GLARGINE 300 UNITS/3 ML INSULN.PEN. SQ SCH (19:45)
[2018-09-09 19:48] VITALS: BP 135/74
[2018-09-09] MEDS: PATCH REMOVAL. MC SCH (20:42)
[2018-09-10 01:18] VITALS: BP 142/76
[2018-09-10] MEDS: guaiFENesin DM 200MG/20MG 10 ML SYRUP PO PRN (05:09)
[2018-09-10] MEDS: IPRATRPIUM/ALBUTEROL 0.5/2.5MG 3 ML NEBU. NEB SCH ×4 (05:11→20:39)
[2018-09-10 05:33] VITALS: BP 133/76
[2018-09-10 06:09] LABS: HEMATOCRIT 35.6 % (39.0-53.0); HEMOGLOBIN 11.4 g/dL (13.0-17.5); RED BLOOD COUNT 4.54 x10^6/uL (4.30-5.70); RED CELL DISTRIBUTION WIDTH 19.5 % (11.5-14.5); WHITE BLOOD COUNT 9.4 x10^3/uL (4.0-11.0)
[2018-09-10 06:31] LABS: ALBUMIN 2.4 g/dL (3.4-5.0); ALBUMIN/GLOBULIN RATIO 0.6 (1.0-1.7); CALCIUM 9.4 mg/dL (8.5-10.1); CREATININE 1.6 mg/dL (0.7-1.3); GFR 52.6; POTASSIUM 3.9 mmol/L (3.5-5.1); TOTAL BILIRUBIN 0.3 mg/dL (0.2-1.0); TOTAL PROTEIN 6.4 g/dL (6.4-8.2)
[2018-09-10] MEDS: NICOTINE 21MG PATCH. TD SCH (08:24)
[2018-09-10] MEDS: LACTOBACILLUS RHAMNOSUS GG 1 CAPSULE. PO SCH ×2 (08:24→20:20)
[2018-09-10] MEDS: TAMSULOSIN 0.4 MG CAP.ER.24H. PO SCH (08:25)
[2018-09-10] MEDS: ALLOPURINOL 100 MG TABLET. PO SCH (08:25)
[2018-09-10] MEDS: ENOXAPARIN 40 MG/0.4 ML SYRINGE. SQ SCH ×2 (08:25→20:33)
[2018-09-10] MEDS: ASPIRIN ENTERIC COATED 81 MG TABLET.DR. PO SCH (08:26)
[2018-09-10] MEDS: SPIRONOLACTONE 25 MG TABLET PO SCH (08:26)
[2018-09-10] MEDS: SERTRALINE 100 MG TABLET. PO SCH (08:26)
[2018-09-10] MEDS: GABAPENTIN 100 MG CAPSULE. PO SCH ×2 (08:27→20:20)
[2018-09-10] MEDS: LIDOCAINE (700MG/PATCH) PATCH. TD SCH (08:31)
[2018-09-10] MEDS: FLUTICASONE 50MCG/NASAL SPRAY 16GM BOTTLE. NS SCH (08:31)
[2018-09-10] MEDS: LISINOPRIL 5 MG TABLET. PO SCH (08:31)
[2018-09-10] MEDS: INSULIN LISPRO 300 UNITS/3 ML INSULN.PEN. SQ SCH ×3 (08:42→17:28)
[2018-09-10] MEDS ORDERED: LIDOCAINE (700MG/PATCH) PATCH. TD SCH (09:00)
[2018-09-10] MEDS: DICLOFENAC SODIUM 1% TOPICAL GEL 100GM TUBE. TP SCH (09:00)
[2018-09-10 11:36] VITALS: BP 138/78
[2018-09-10 16:20] VITALS: BP 120/77
[2018-09-10] MEDS: BENZOCAINE/MENTHOL LOZNGE 18'S BOX. MM PRN (20:19)
[2018-09-10] MEDS: BENZONATATE 100 MG CAPSULE. PO PRN (20:20)
[2018-09-10] MEDS: ACETAMINOPHEN 325 MG TABLET PO SCH (20:20)
[2018-09-10] MEDS: ATORVASTATIN CALCIUM 20 MG TABLET PO SCH (20:20)
[2018-09-10] MEDS: PATCH REMOVAL. MC SCH (20:21)
[2018-09-10] MEDS: INSULIN GLARGINE 300 UNITS/3 ML INSULN.PEN. SQ SCH (20:31)
[2018-09-10 20:33] VITALS: BP 93/67
[2018-09-10 23:01] VITALS: BP 136/78
--- NOTE | 2018-09-10 23:43 | PN ---
DATE: 09/10/2018 SUBJECTIVE: The patient is sitting comfortably in his chair, in no apparent distress. On questioning him, he stated that he is doing very well and would like to go back to his intermediate facility in the [facility]. Nursing staff did not voice any concern that he had an uneventful night. PHYSICAL EXAMINATION: GENERAL: When I examined him, he looked well and was clearly in no apparent respiratory distress. No pallor, jaundice, cyanosis, or thyromegaly. No jugular venous distension. No limb edema. VITAL SIGNS: His heart rate was 92, blood pressure was 138/78, temperature was 98.1, respiratory rate 20, and oxygen saturation was 97% on room air. HEAD, EYES, EARS, NOSE AND THROAT: Showed normocephalic, atraumatic. NECK: Supple. HEART: Showed normal first and second sounds. No gallop, rub or murmur. CHEST: Clear to auscultation. No crepitation or rhonchi. ABDOMEN: Distended, soft, nontender. NEUROLOGIC: He was awake, alert, responding appropriately. All cranial nerves intact. He actually is able to ambulate with a walker with the minimal assistance. His intake was 1480, output was 1900. LABORATORY DATA: Showed a serum sodium 137, potassium 3.9, chloride 103, bicarbonate 26, anion gap of 8, BUN 20, creatinine 1.6, estimated GFR was 52 mL per minute, his glucose 120, calcium was 9.4. Total bilirubin, AST, ALT, alkaline phosphatase were normal. Total protein was 6.4, albumin was 2.4. His white cell count was 9400, hemoglobin 11.4, hematocrit 35.6, MCV is 79 and platelet count 218,000. His stool for C. diff was negative. His nasal screen for MRSA by PCR was negative. His prothrombin time, INR and aPTT were normal. ASSESSMENT: 1. Chronic obstructive pulmonary disease exacerbation. 2. Acute hypoxic hypercapnic respiratory failure. 3. Acute bronchitis. Other medical problems include: A. Congestive heart failure. B. Atrial fibrillation, rate controlled. C. Diarrhea has subsided. D. Chronic kidney disease, stable. As the patient remained stable, we will discharge him back to the intermediate facility at [facility] tomorrow. AHMED M. GANESH, MD DR: TEODORA/hali JOB#: [id number] / [id number]
[2018-09-11] MEDS: IPRATRPIUM/ALBUTEROL 0.5/2.5MG 3 ML NEBU. NEB SCH ×4 (05:15→20:45)
[2018-09-11] MEDS: guaiFENesin DM 200MG/20MG 10 ML SYRUP PO PRN (05:18)
[2018-09-11 05:50] VITALS: BP 124/75
[2018-09-11] MEDS: INSULIN LISPRO 300 UNITS/3 ML INSULN.PEN. SQ SCH ×3 (08:00→17:14)
[2018-09-11] MEDS: ASPIRIN ENTERIC COATED 81 MG TABLET.DR. PO SCH (08:18)
[2018-09-11] MEDS: SPIRONOLACTONE 25 MG TABLET PO SCH (08:18)
[2018-09-11] MEDS: ENOXAPARIN 40 MG/0.4 ML SYRINGE. SQ SCH ×2 (08:19→20:43)
[2018-09-11] MEDS: ALLOPURINOL 100 MG TABLET. PO SCH (08:19)
[2018-09-11] MEDS: SERTRALINE 100 MG TABLET. PO SCH (08:19)
[2018-09-11] MEDS: TAMSULOSIN 0.4 MG CAP.ER.24H. PO SCH (08:19)
[2018-09-11] MEDS: GABAPENTIN 100 MG CAPSULE. PO SCH ×2 (08:19→20:42)
[2018-09-11] MEDS: LISINOPRIL 5 MG TABLET. PO SCH (08:20)
[2018-09-11] MEDS: LACTOBACILLUS RHAMNOSUS GG 1 CAPSULE. PO SCH ×2 (08:20→20:41)
[2018-09-11] MEDS: NICOTINE 21MG PATCH. TD SCH (08:21)
[2018-09-11] MEDS: LIDOCAINE (700MG/PATCH) PATCH. TD SCH (08:21)
[2018-09-11] MEDS: FLUTICASONE 50MCG/NASAL SPRAY 16GM BOTTLE. NS SCH (09:00)
[2018-09-11] MEDS: DICLOFENAC SODIUM 1% TOPICAL GEL 100GM TUBE. TP SCH (09:00)
--- NOTE | 2018-09-11 10:18 | PDOC ---
PROGRESS NOTES Diagnosis Problem Problems Medical Problems: (1) Nausea & vomiting Status: Acute Assessment Problems Medical Problems: (1) Nausea & vomiting Status: Acute 1. atrial fibrillation with RVR - remains sinus tachy now. continue cardizem. poor candidate for OAC. await echo. Follow up with [facility] at the [facility]. 2. acute on chronic hypoxic hypercapnic respiratory failure secondary to COPD exacerbation - mgmt Per PCP. 3. HTN - controlled , continue current medications. Hypotension resolved. bp stable 4. diarrhea - per PCP, 5. CKD stage 3 - per PCP Subjective no new complaints Objective Vital Signs Date Time Temp Pulse Resp B/P (MAP) Pulse Ox O2 Delivery O2 Flow Rate FiO2 09/11/18 08:20 77 124/75 09/11/18 08:00 Room Air 1.0 09/11/18 05:50 98.1 24 95 Intake and Output 09/11/18 07:01 Intake Total 2000 ml Output Total 2850 ml Balance -850 ml Intake Oral 1900 ml IV Total 100 ml Output Urine Total 2850 ml Abdomen: Normal bowel sounds, Soft Heart: Normal S1, Normal S2 Extremities: Other (+ chronic non pitting edema) General: Alert, Oriented X3, Cooperative Lungs: Other Neuro: Normal speech Psych/Mental Status: Mood NL Review of Relevant I have reviewed the following items jose armando (where applicable) has been applied. Labs Laboratory Tests Test 09/09/18 11:21 09/09/18 16:28 09/09/18 19:36 09/10/18 05:35 Glucose (Fingerstick) 152 mg/dL (70-99) 118 mg/dL (70-99) 117 mg/dL (70-99) White Blood Count 9.4 x10^3/uL (4.0-11.0) Red Blood Count 4.54 x10^6/uL (4.30-5.70) Hemoglobin 11.4 g/dL (13.0-17.5) Hematocrit 35.6 % (39.0-53.0) Mean Corpuscular Volume 79 fL (79-100) Mean Corpuscular Hemoglobin 25 pg (25-35) Mean Corpuscular Hemoglobin Concent 32 g/dL (31-37) Red Cell Distribution Width 19.5 % (11.5-14.5) Platelet Count 218 x10^3/uL (140-400) Sodium Level 137 mmol/L (136-145) Potassium Level 3.9 mmol/L (3.5-5.1) Chloride Level 103 mmol/L (98-107) Carbon Dioxide Level 26 mmol/L (21-32) Anion Gap 8 (6-14) Blood Urea Nitrogen 20 mg/dL (8-26) Creatinine 1.6 mg/dL (0.7-1.3) Estimated GFR (Cockcroft-Gault) 52.6 BUN/Creatinine Ratio 13 (6-20) Glucose Level 120 mg/dL (70-99) Calcium Level 9.4 mg/dL (8.5-10.1) Total Bilirubin 0.3 mg/dL (0.2-1.0) Aspartate Amino Transf (AST/SGOT) 22 U/L (15-37) Alanine Aminotransferase (ALT/SGPT) 19 U/L (16-63) Alkaline Phosphatase 111 U/L (46-116) Total Protein 6.4 g/dL (6.4-8.2) Albumin 2.4 g/dL (3.4-5.0) Albumin/Globulin Ratio 0.6 (1.0-1.7) Test 09/10/18 07:38 09/10/18 12:00 09/10/18 16:43 09/10/18 20:21 Glucose (Fingerstick) 136 mg/dL (70-99) 94 mg/dL (70-99) 166 mg/dL (70-99) 125 mg/dL (70-99) Test 09/11/18 07:53 Glucose (Fingerstick) 122 mg/dL (70-99) Microbiology 09/06/18 Blood Culture - Preliminary, Resulted NO GROWTH AFTER 4 DAYS... 09/08/18 - Final, Resulted 09/08/18 - Final, Resulted 09/08/18 - Final, Resulted 09/08/18 - Final, Resulted 09/08/18 - Final, Resulted 09/08/18 - Final, Resulted 09/08/18 Sputum Culture, Resulted Pending 09/08/18 Sputum Result 1, Resulted Pending Medications Current Medications Sodium Chloride 1,000 ml @ 100 mls/hr Q10H IV Last administered on 09/07/18at 01:02; Start 09/06/18 at 21:58; Stop 09/07/18 at 07:57; Status DC Ondansetron HCl (Zofran) 8 mg 1X ONCE IV Last administered on 09/06/18at 22:36 ; Start 09/06/18 at 22:00; Stop 09/06/18 at 23:05; Status DC Famotidine (Pepcid Vial) 20 mg 1X ONCE IVP Last administered on 09/06/18at 22: 36; Start 09/06/18 at 22:00; Stop 09/06/18 at 23:05; Status DC Clonidine HCl (Catapres) 0.1 mg 1X ONCE PO ; Start 09/07/18 at 00:30; Stop 08/14 at 01:02; Status DC Nicotine (Nicoderm Cq 7mg) 1 patch DAILY TD Last administered on 09/07/18at 08: 49; Start 09/07/18 at 09:00; Stop 09/07/18 at 14:01; Status DC Ondansetron HCl (Zofran) 4 mg PRN Q4HRS PRN IV NAUSEA/VOMITING; Start 09/07/18 at 01:00; Stop 09/08/18 at 00:59; Status DC Albuterol/ Ipratropium (Duoneb) 3 ml RTQID NEB Last administered on 09/07/18at 21:03; Start 09/07/18 at 08:00; Stop 09/08/18 at 08:00; Status DC Lactated Ringer's 1,000 ml @ 160 mls/hr 1X ONCE IV Last administered on at 03:22; Start 09/07/18 at 01:15; Stop 09/07/18 at 07:29; Status DC Levofloxacin/ Dextrose 100 ml @ 100 mls/hr DAILY06 IV Last administered on at 05:10; Start 09/08/18 at 06:00; Stop 09/11/18 at 08:11; Status DC Levofloxacin/ Dextrose 100 ml @ 100 mls/hr ONCE ONCE IV Last administered on 09/07/18at 02:10; Start 09/07/18 at 02:00; Stop 09/07/18 at 02:59; Status DC Diltiazem HCl (Cardizem Iv Push) 10 mg 1X ONCE IVP Last administered on at 02:09; Start 09/07/18 at 02:15; Stop 09/07/18 at 02:47; Status DC Diltiazem HCl (Cardizem Iv Push) 10 mg 1X ONCE IVP ; Start 09/07/18 at 02:45; Stop 09/07/18 at 02:47; Status DC Diltiazem HCl (Cardizem Iv Push) 10 mg 1X PRN PRN IVP TACYCARDIA; Start at 03:45; Stop 09/07/18 at 09:00; Status DC Albuterol/ Ipratropium (Duoneb) 3 ml STK-MED ONCE .ROUTE Last administered on at 05:30; Start 09/07/18 at 05:16; Stop 09/07/18 at 05:18; Status DC Acetaminophen (Tylenol) 650 mg HS PO Last administered on 09/10/18at 20:20; Start 09/07/18 at 21:00 Acetaminophen (Tylenol) 650 mg PRN Q6HRS PRN PO PAIN Last administered on at 10:40; Start 09/07/18 at 13:30 Throat Lozenges (Cepacol Sore Throat Lozenge) 1 marcelo PRN Q2HR PRN MM Sore throat Last administered on 09/10/18at 20:19; Start 09/07/18 at 13:30 Gabapentin (Neurontin) 200 mg BID PO Last administered on 09/11/18at 08:19; Start 09/07/18 at 21:00 Guaifenesin (Robitussin Dm) 5 ml PRN BID PRN PO COUGH Last administered on 09/11at 05:18; Start 09/07/18 at 13:30 Insulin Glargine (Lantus) 28 units QHS SQ Last administered on 09/10/18at 20:31 ; Start 09/07/18 at 21:00 Albuterol/ Ipratropium (Duoneb) 3 ml QID NEB ; Start 09/07/18 at 17:00; Stop 08/14 at 17:00; Status DC Sertraline HCl (Zoloft) 100 mg DAILY PO Last administered on 09/11/18at 08:19; Start 09/08/18 at 09:00 Tamsulosin HCl (Flomax) 0.4 mg DAILY PO Last administered on 09/11/18at 08:19; Start 09/08/18 at 09:00 Allopurinol (Zyloprim) 200 mg DAILY PO Last administered on 09/11/18 08:19; Start 09/08/18 at 09:00 Amlodipine Besylate (Norvasc) 10 mg DAILY PO Last administered on 09/08/18 08: 33; Start 09/08/18 at 09:00; Stop 09/08/18 at 11:46; Status DC Aspirin (Aspirin Enteric Coated) 81 mg DAILYWBKFT PO Last administered on 08:18; Start 09/08/18 at 08:00 Atorvastatin Calcium (Lipitor) 40 mg QHS PO Last administered on 09/10/18 20: 20; Start 09/07/18 at 21:00 Benzonatate (Tessalon Perle) 100 mg PRN BID PRN PO COUGH Last administered on 20:20; Start 09/07/18 at 14:00 Enoxaparin Sodium (Lovenox 40mg Syringe) 40 mg DAILY SQ ; Start 09/07/18 at 14: 00; Stop 09/07/18 at 14:00; Status DC Fluticasone Propionate (Flonase) 2 spray DAILY NS Last administered on 08:31; Start 09/08/18 at 09:00 Guaifenesin (Guaifenesin) 400 mg QID PO Last administered on 09/11/18 08:22; Start 09/07/18 at 17:00 Insulin Human Lispro (HumaLOG) 12 units TIDWMEALS SQ Last administered on 17:28; Start 09/07/18 at 17:00 Lisinopril (Prinivil) 5 mg DAILY PO Last administered on 09/11/18 08:20; Start 09/08/18 at 09:00 Nicotine (Nicoderm Cq 21mg) 1 patch DAILY TD Last administered on 09/11/18 08: 21; Start 09/08/18 at 09:00 Polyethylene Glycol (miraLAX) 17 gm PRN BID PRN PO CONSTIPATION; Start at 09:00 Spironolactone (Aldactone) 12.5 mg DAILY PO Last administered on 09/11/18 08: 18; Start 09/08/18 at 09:00 Enoxaparin Sodium (Lovenox 40mg Syringe) 40 mg DAILY SQ Last administered on at 08:30; Start 09/08/18 at 09:00; Stop 09/08/18 at 09:41; Status DC Albuterol/ Ipratropium (Duoneb) 3 ml RTQID NEB Last administered on 09/11/18at 05:15; Start 09/08/18 at 08:00 Multi-Ingred Cream/Lotion/Oil/ Oint (Hydrocerin) 1 oumou PRN Q1HR PRN TP DRY SKIN / SCALING; Start 09/07/18 at 22:15; Stop 09/10/18 at 10:25; Status DC Diclofenac Sodium (Voltaren) 1 oumou DAILY TP ; Start 09/08/18 at 09:00 Enoxaparin Sodium (Lovenox 40mg Syringe) 40 mg Q12H SQ Last administered on at 08:19; Start 09/08/18 at 21:00 Lactobacillus Rhamnosus (Culturelle) 1 cap BID PO Last administered on at 08:20; Start 09/08/18 at 21:00 Diltiazem HCl (Cardizem 24hr Cd) 120 mg DAILY PO Last administered on at 08:20; Start 09/08/18 at 11:45 Multi-Ingred Cream/Lotion/Oil/ Oint (Hydrocerin) 1 oumou PRN Q1HR PRN TP DRY SKIN / SCALING; Start 09/09/18 at 13:15 Lidocaine (Lidoderm) 1 patch DAILY TD ; Start 09/10/18 at 09:00; Stop 09/10/18 at 09:00; Status DC Miscellaneous (Lidoderm Patch Removal) 1 ea QHS MC Last administered on at 20:21; Start 09/09/18 at 21:00 Lidocaine (Lidoderm) 1 patch DAILY TD Last administered on 09/11/18at 08:21; Start 09/09/18 at 14:15 Fentanyl Citrate (Fentanyl 2ml Vial) 50 mcg PRN Q2HR PRN IV PAIN; Start at 14:45 Levofloxacin (Levaquin) 500 mg DAILY06 PO ; Start 09/12/18 at 06:00 Active Scripts Active Reported Miralax (Polyethylene Glycol 3350) 119 Gm Powder 17 Gm PO PRN BID PRN LAST DOSE GIVEN: DATE: TIME: NEXT DOSE DUE: DATE: TIME: Cepacol Sore Throat Lozenge (Benzocaine/Menthol) 1 Each Lozenge 1 Each MM PRN Q2HR PRN LAST DOSE GIVEN: DATE: TIME: NEXT DOSE DUE: DATE: TIME: Tylenol (Acetaminophen) 325 Mg Tablet 650 Mg PO PRN Q6HRS PRN LAST DOSE GIVEN: DATE: TIME: NEXT DOSE DUE: DATE: TIME: Guaifenesin Dm Syrup (Guaifenesin/Dextromethorphan) 5 Ml Syrup 5 Ml PO PRN BID PRN LAST DOSE GIVEN: DATE: TIME: NEXT DOSE DUE: DATE: TIME: Benzonatate 100 Mg Capsule 100 Mg PO PRN BID PRN LAST DOSE GIVEN: DATE: TIME: NEXT DOSE DUE: DATE: TIME: Lantus Solostar (Insulin Glargine,Hum.rec.anlog) 100 Unit/1 Ml Insuln.pen 28 Unit SQ QHS LAST DOSE GIVEN: DATE: TIME: NEXT DOSE DUE: DATE: TIME: Duoneb 0.5-3(2.5) Mg/3 Ml (Albuterol/Ipratropium) 3 Ml Ampul.neb 3 Ml NEB QID LAST DOSE GIVEN: DATE: TIME: NEXT DOSE DUE: DATE: TIME: Fluticasone Propionate Nasal Manteo (Fluticasone Propionate) 16 Gm Manteo.susp 2 Manteo NS DAILY LAST DOSE GIVEN: DATE: TIME: NEXT DOSE DUE: DATE: TIME: Tylenol (Acetaminophen) 325 Mg Tablet 650 Mg PO HS LAST DOSE GIVEN: DATE: TIME: NEXT DOSE DUE: DATE: TIME: Tamsulosin Hcl 0.4 Mg Cap.er.24h 0.4 Mg PO DAILY LAST DOSE GIVEN: DATE: TIME: NEXT DOSE DUE: DATE: TIME: Spironolactone 25 Mg Tablet 12.5 Mg PO DAILY LAST DOSE GIVEN: DATE: TIME: NEXT DOSE DUE: DATE: TIME: Zoloft (Sertraline Hcl) 100 Mg Tablet 100 Mg PO DAILY LAST DOSE GIVEN: DATE: TIME: NEXT DOSE DUE: DATE: TIME: NICODERM CQ 21mg (Nicotine) 1 Each Patch.td24 1 Patch TD DAILY LAST DOSE GIVEN: DATE: TIME: NEXT DOSE DUE: DATE: TIME: Lisinopril 5 Mg Tablet 5 Mg PO DAILY LAST DOSE GIVEN: DATE: TIME: NEXT DOSE DUE: DATE: TIME: Novolog Flexpen (Insulin Aspart) 100 Unit/1 Ml Insuln.pen 12 Unit SQ TIDAC LAST DOSE GIVEN: DATE: TIME: NEXT DOSE DUE: DATE: TIME: Guaifenesin 400 Mg Tablet 400 Mg PO QID LAST DOSE GIVEN: DATE: TIME: NEXT DOSE DUE: DATE: TIME: Gabapentin (Gabapentin) 100 Mg Capsule 200 Mg PO BID LAST DOSE GIVEN: DATE: TIME: NEXT DOSE DUE: DATE: TIME: Furosemide 20 Mg Tablet 20 Mg PO DAILY LAST DOSE GIVEN: DATE: TIME: NEXT DOSE DUE: DATE: TIME: Lovenox (Enoxaparin Sodium) 40 Mg/0.4 Ml Disp.syrin 40 Mg SQ DAILY LAST DOSE GIVEN: DATE: TIME: NEXT DOSE DUE: DATE: TIME: Atorvastatin Calcium 40 Mg Tablet 40 Mg PO QHS LAST DOSE GIVEN: DATE: TIME: NEXT DOSE DUE: DATE: TIME: Aspir-Low (Aspirin) 81 Mg Tablet.dr 81 Mg PO DAILY LAST DOSE GIVEN: DATE: TIME: NEXT DOSE DUE: DATE: TIME: Amlodipine Besylate 10 Mg Tablet 10 Mg PO DAILY LAST DOSE GIVEN: DATE: TIME: NEXT DOSE DUE: DATE: TIME: Allopurinol 100 Mg Tablet 200 Mg PO DAILY LAST DOSE GIVEN: DATE: TIME: NEXT DOSE DUE: DATE: TIME: Vitals/I & O Vital Sign - Last 24 Hours 09/10/18 09/10/18 09/10/18 09/10/18 11:36 15:18 16:20 20:00 Temp 98.1 98.0 Pulse 92 97 Resp 20 20 B/P (MAP) 138/78 (98) 120/77 (91) Pulse Ox 93 97 92 O2 Delivery Room Air Room Air Room Air Room Air 09/10/18 09/10/18 09/10/18 09/11/18 20:33 20:39 23:01 05:16 Temp 98.1 98.3 Pulse 92 84 Resp 20 20 B/P (MAP) 93/67 (76) 136/78 (97) Pulse Ox 94 97 95 97 O2 Delivery Room Air Room Air Room Air 09/11/18 09/11/18 09/11/18 09/11/18 05:50 08:00 08:20 08:20 Temp 98.1 Pulse 77 77 77 Resp 24 B/P (MAP) 124/75 (91) 124/75 124/75 Pulse Ox 95 O2 Delivery Room Air Room Air O2 Flow Rate 1.0 Intake and Output 09/10/18 09/10/18 09/11/18 15:01 23:01 07:01 Intake Total 720 ml 760 ml 520 ml Output Total 1100 ml 1750 ml Balance 720 ml -340 ml -1230 ml HOWARD RODRIGUEZ [employer] Sep 11, 2018 10:18
[2018-09-11 10:32] VITALS: BP 145/77
[2018-09-11 15:50] VITALS: BP 136/79
--- NOTE | 2018-09-11 17:34 | CARD ---
MR#: [id number] Date of Study: 09/11/2018 Ordering Physician: MELL ANDERSEN, Referring Physician: MELL ANDERSEN Tech: Aurora Arguello RDCS APPROVED REPORT EXAM: Two-dimensional and M-mode echocardiogram with Doppler and color Doppler. Other Information Quality : Good Rhythm : NSR INDICATION Atrial Fibrillation 2D DIMENSIONS RVDd3.1 (2.9-3.5cm)Left Atrium(2D)4.7 (1.6-4.0cm) IVSd1.5 (0.7-1.1cm)Aortic Root(2D)3.1 (2.0-3.7cm) LVDd5.0 (3.9-5.9cm)LVOT Diameter2.6 (1.8-2.4cm) PWd1.4 (0.7-1.1cm)LVDs3.5 (2.5-4.0cm) FS (%) 29.8 %SV67.1 ml LVEF(%)55.0 (>50%) Aortic Valve AoV Peak Donte.149.6cm/sAoV VTI24.3cm AO Peak GR.9.0mmHgLVOT Peak Donte.120.5cm/s LVOT VTI 24.00cmAO Mean GR.5mmHg CATALINA (VMAX)4.82ln8KPZ (VTI)5.24cm2 Mitral Valve MV E Islkdage941.8cm/sMV DECEL [id number] MV A Vmmtxpwy739.4cm/sE/A Ratio0.9 Tricuspid Valve TR P. Jdkwwvho230bf/sRAP [id number] TR Peak Gr.[id number] LEFT VENTRICLE The left ventricle is normal size. There is mild concentric left ventricular hypertrophy. Left ventri tenisha systolic function is low normal. The Ejection Fraction is 50-55%. Septal motion consistent with c onduction abnormality. Transmitral Doppler flow pattern is Grade I-abnormal relaxation pattern. RIGHT VENTRICLE The right ventricle is normal size. The right ventricular systolic function is normal. ATRIA The left atrium is mildly dilated. The right atrium size is normal. The interatrial septum is intact with no evidence for an atrial septal defect or patent foramen ovale as noted on 2-D or Doppler imagi ng. AORTIC VALVE The aortic valve is calcified but opens well. Doppler and Color Flow revealed no significant aortic r egurgitation. There is no significant aortic valvular stenosis. MITRAL VALVE The mitral valve is calcified but opens well. There is no evidence of mitral valve prolapse. There is no mitral valve stenosis. Doppler and Color Flow revealed no mitral valve regurgitation noted. TRICUSPID VALVE The tricuspid valve is normal in structure and function. Doppler and Color Flow revealed trace tricus pid regurgitation. There is moderate-severe pulmonary hypertension. The PA pressure was estimated at 60 mmHg. There is no tricuspid valve stenosis. PULMONIC VALVE The pulmonic valve is not well visualized. Doppler and Color Flow revealed no pulmonic valvular regur gitation. There is no pulmonic valvular stenosis. GREAT VESSELS The aortic root is normal in size. The ascending aorta is normal in size. The IVC is dilated and jose apses <50% with inspiration. PERICARDIAL EFFUSION There is no evidence of significant pericardial effusion. Critical Notification Critical Value: No <Conclusion> There is mild concentric left ventricular hypertrophy. Left ventricle systolic function is low normal. The Ejection Fraction is 50-55%. Doppler and Color Flow revealed trace tricuspid regurgitation. There is moderate-severe pulmonary hyp ertension. The PA pressure was estimated at 60 mmHg. Signed by : Parviz De La Rosa, Electronically Approved : 09/11/2018 17:32:07
[2018-09-11 19:45] VITALS: BP 135/79
[2018-09-11] MEDS: PATCH REMOVAL. MC SCH (20:31)
[2018-09-11] MEDS: INSULIN GLARGINE 300 UNITS/3 ML INSULN.PEN. SQ SCH (20:41)
[2018-09-11] MEDS: ATORVASTATIN CALCIUM 20 MG TABLET PO SCH (20:41)
[2018-09-11] MEDS: ACETAMINOPHEN 325 MG TABLET PO SCH (20:42)
--- NOTE | 2018-09-11 20:45 | PN ---
DATE: 09/11/2018 SUBJECTIVE: The patient is resting slightly propped up in bed, in no apparent respiratory distress. He denied any complaint. Nursing staff did not voice any concern. We are still waiting for the [facility] to accept him, so that [facility] can be [facility]. PHYSICAL EXAMINATION: GENERAL: When I examined him this morning, he looked well and was clearly in no apparent respiratory distress. No pallor, jaundice, cyanosis, or thyromegaly. No jugular venous distension. No limb edema. VITAL SIGNS: His heart rate was 87, blood pressure 145/77, temperature was 97.9, respiratory rate was 22 and oxygen saturation was 95%. HEAD, EYES, EARS, NOSE AND THROAT: Showed normocephalic, atraumatic. NECK: Supple. HEART: Showed normal first and second heart sounds. No gallop, rub or murmur. CHEST: Clear to auscultation. No crepitation or rhonchi. ABDOMEN: Distended, soft, nontender. NEUROLOGIC: He was awake, alert, responding appropriately. All cranial nerves intact. He moves extremities without difficulty. He does ambulate with a walker with assistance. His intake over the last 24 hours was 2000 and output was 2850. LABORATORY DATA: As of yesterday, his white cell count was 9400, hemoglobin 11, hematocrit 35, MCV 79 and platelet count 218,000. His chemistry showed his serum sodium was 137, potassium 3.9, chloride 103, bicarbonate 26, anion gap of 8, BUN 20, creatinine 1.6, estimated GFR was 62 mL per minute. ASSESSMENT: 1. Chronic obstructive pulmonary disease exacerbation. 2. Acute hypoxic hypercapnic respiratory failure. 3. Acute bronchitis. OTHER MEDICAL PROBLEMS: Including: A. Congestive heart failure. B. Atrial fibrillation, rate controlled. C. Diarrhea that has subsided. D. Chronic kidney disease, stable. PLAN: Obviously, the patient will be discharged. He was accepted that the [facility]. MELL ANDERSEN MD DR: TEDOORA/hali JOB#: [id number] / [id number]
[2018-09-11 23:41] VITALS: BP 159/84
[2018-09-12] MEDS: IPRATRPIUM/ALBUTEROL 0.5/2.5MG 3 ML NEBU. NEB SCH ×2 (05:29→09:31)
[2018-09-12 05:49] VITALS: BP 146/80
[2018-09-12] MEDS ORDERED: levoFLOXacin 500 MG TABLET PO SCH (06:00)
[2018-09-12 08:41] VITALS: BP 146/80
[2018-09-12] MEDS: TAMSULOSIN 0.4 MG CAP.ER.24H. PO SCH (08:41)
[2018-09-12] MEDS: LISINOPRIL 5 MG TABLET. PO SCH (08:41)
[2018-09-12] MEDS: GABAPENTIN 100 MG CAPSULE. PO SCH (08:41)
[2018-09-12] MEDS: ASPIRIN ENTERIC COATED 81 MG TABLET.DR. PO SCH (08:41)
[2018-09-12] MEDS: ALLOPURINOL 100 MG TABLET. PO SCH (08:42)
[2018-09-12] MEDS: SPIRONOLACTONE 25 MG TABLET PO SCH (08:42)
[2018-09-12] MEDS: SERTRALINE 100 MG TABLET. PO SCH (08:42)
[2018-09-12] MEDS: LACTOBACILLUS RHAMNOSUS GG 1 CAPSULE. PO SCH (08:42)
[2018-09-12] MEDS: NICOTINE 21MG PATCH. TD SCH (08:44)
[2018-09-12] MEDS: LIDOCAINE (700MG/PATCH) PATCH. TD SCH (08:44)
[2018-09-12] MEDS: ENOXAPARIN 40 MG/0.4 ML SYRINGE. SQ SCH (08:45)
[2018-09-12] MEDS: FLUTICASONE 50MCG/NASAL SPRAY 16GM BOTTLE. NS SCH (08:45)
[2018-09-12] MEDS: INSULIN LISPRO 300 UNITS/3 ML INSULN.PEN. SQ SCH (08:55)
[2018-09-12] MEDS: DICLOFENAC SODIUM 1% TOPICAL GEL 100GM TUBE. TP SCH (08:56)
--- NOTE | 2018-09-12 10:20 | PDOC ---
PROGRESS NOTES Diagnosis Problem Problems Medical Problems: (1) Nausea & vomiting Status: Acute Assessment Problems Medical Problems: (1) Nausea & vomiting Status: Acute not seen Objective Vital Signs Date Time Temp Pulse Resp B/P (MAP) Pulse Ox O2 Delivery O2 Flow Rate FiO2 09/12/18 09:31 96 Room Air 09/12/18 08:41 74 146/80 09/12/18 08:00 1.0 09/12/18 05:49 98.1 24 Intake and Output 09/12/18 07:01 Intake Total 1320 ml Output Total 1575 ml Balance -255 ml Intake Oral 1320 ml Output Urine Total 1575 ml # Voids 1 Review of Relevant I have reviewed the following items jose armando (where applicable) has been applied. Labs Laboratory Tests Test 09/10/18 12:00 09/10/18 16:43 09/10/18 20:21 09/11/18 07:53 Glucose (Fingerstick) 94 mg/dL (70-99) 166 mg/dL (70-99) 125 mg/dL (70-99) 122 mg/dL (70-99) Test 09/11/18 11:42 09/11/18 16:45 09/11/18 20:13 09/12/18 07:32 Glucose (Fingerstick) 154 mg/dL (70-99) 132 mg/dL (70-99) 140 mg/dL (70-99) 140 mg/dL (70-99) Microbiology 09/06/18 Blood Culture - Final, Complete NO GROWTH AFTER 5 DAYS... 09/08/18 - Final, Complete 09/08/18 - Final, Complete 09/08/18 - Final, Complete 09/08/18 - Final, Complete 09/08/18 - Final, Complete 09/08/18 - Final, Complete 09/08/18 Sputum Culture - Final, Complete 09/08/18 Sputum Result 1 - Final, Complete Medications Current Medications Sodium Chloride 1,000 ml @ 100 mls/hr Q10H IV Last administered on 09/07/18at 01:02; Start 09/06/18 at 21:58; Stop 09/07/18 at 07:57; Status DC Ondansetron HCl (Zofran) 8 mg 1X ONCE IV Last administered on 09/06/18at 22:36 ; Start 09/06/18 at 22:00; Stop 09/06/18 at 23:05; Status DC Famotidine (Pepcid Vial) 20 mg 1X ONCE IVP Last administered on 09/06/18at 22: 36; Start 09/06/18 at 22:00; Stop 09/06/18 at 23:05; Status DC Clonidine HCl (Catapres) 0.1 mg 1X ONCE PO ; Start 09/07/18 at 00:30; Stop 08/14 at 01:02; Status DC Nicotine (Nicoderm Cq 7mg) 1 patch DAILY TD Last administered on 09/07/18at 08: 49; Start 09/07/18 at 09:00; Stop 09/07/18 at 14:01; Status DC Ondansetron HCl (Zofran) 4 mg PRN Q4HRS PRN IV NAUSEA/VOMITING; Start 09/07/18 at 01:00; Stop 09/08/18 at 00:59; Status DC Albuterol/ Ipratropium (Duoneb) 3 ml RTQID NEB Last administered on 09/07/18at 21:03; Start 09/07/18 at 08:00; Stop 09/08/18 at 08:00; Status DC Lactated Ringer's 1,000 ml @ 160 mls/hr 1X ONCE IV Last administered on at 03:22; Start 09/07/18 at 01:15; Stop 09/07/18 at 07:29; Status DC Levofloxacin/ Dextrose 100 ml @ 100 mls/hr DAILY06 IV Last administered on at 05:10; Start 09/08/18 at 06:00; Stop 09/11/18 at 08:11; Status DC Levofloxacin/ Dextrose 100 ml @ 100 mls/hr ONCE ONCE IV Last administered on 09/07/18at 02:10; Start 09/07/18 at 02:00; Stop 09/07/18 at 02:59; Status DC Diltiazem HCl (Cardizem Iv Push) 10 mg 1X ONCE IVP Last administered on at 02:09; Start 09/07/18 at 02:15; Stop 09/07/18 at 02:47; Status DC Diltiazem HCl (Cardizem Iv Push) 10 mg 1X ONCE IVP ; Start 09/07/18 at 02:45; Stop 09/07/18 at 02:47; Status DC Diltiazem HCl (Cardizem Iv Push) 10 mg 1X PRN PRN IVP TACYCARDIA; Start at 03:45; Stop 09/07/18 at 09:00; Status DC Albuterol/ Ipratropium (Duoneb) 3 ml STK-MED ONCE .ROUTE Last administered on at 05:30; Start 09/07/18 at 05:16; Stop 09/07/18 at 05:18; Status DC Acetaminophen (Tylenol) 650 mg HS PO Last administered on 09/11/18at 20:42; Start 09/07/18 at 21:00 Acetaminophen (Tylenol) 650 mg PRN Q6HRS PRN PO PAIN Last administered on at 10:40; Start 09/07/18 at 13:30 Throat Lozenges (Cepacol Sore Throat Lozenge) 1 marcelo PRN Q2HR PRN MM Sore throat Last administered on 09/10/18at 20:19; Start 09/07/18 at 13:30 Gabapentin (Neurontin) 200 mg BID PO Last administered on 09/12/18at 08:41; Start 09/07/18 at 21:00 Guaifenesin (Robitussin Dm) 5 ml PRN BID PRN PO COUGH Last administered on 09/11 05:18; Start 09/07/18 at 13:30 Insulin Glargine (Lantus) 28 units QHS SQ Last administered on 09/11/18at 20:41 ; Start 09/07/18 at 21:00 Albuterol/ Ipratropium (Duoneb) 3 ml QID NEB ; Start 09/07/18 at 17:00; Stop 08/14 at 17:00; Status DC Sertraline HCl (Zoloft) 100 mg DAILY PO Last administered on 09/12/18at 08:42; Start 09/08/18 at 09:00 Tamsulosin HCl (Flomax) 0.4 mg DAILY PO Last administered on 09/12/18at 08:41; Start 09/08/18 at 09:00 Allopurinol (Zyloprim) 200 mg DAILY PO Last administered on 09/12/18at 08:42; Start 09/08/18 at 09:00 Amlodipine Besylate (Norvasc) 10 mg DAILY PO Last administered on 09/08/18 08: 33; Start 09/08/18 at 09:00; Stop 09/08/18 at 11:46; Status DC Aspirin (Aspirin Enteric Coated) 81 mg DAILYWBKFT PO Last administered on at 08:41; Start 09/08/18 at 08:00 Atorvastatin Calcium (Lipitor) 40 mg QHS PO Last administered on 09/11/18at 20: 41; Start 09/07/18 at 21:00 Benzonatate (Tessalon Perle) 100 mg PRN BID PRN PO COUGH Last administered on 20:20; Start 09/07/18 at 14:00 Enoxaparin Sodium (Lovenox 40mg Syringe) 40 mg DAILY SQ ; Start 09/07/18 at 14: 00; Stop 09/07/18 at 14:00; Status DC Fluticasone Propionate (Flonase) 2 spray DAILY NS Last administered on at 08:45; Start 09/08/18 at 09:00 Guaifenesin (Guaifenesin) 400 mg QID PO Last administered on 09/12/18 08:46; Start 09/07/18 at 17:00 Insulin Human Lispro (HumaLOG) 12 units TIDWMEALS SQ Last administered on 08:55; Start 09/07/18 at 17:00 Lisinopril (Prinivil) 5 mg DAILY PO Last administered on 09/12/18 08:41; Start 09/08/18 at 09:00 Nicotine (Nicoderm Cq 21mg) 1 patch DAILY TD Last administered on 09/12/18 08: 44; Start 09/08/18 at 09:00 Polyethylene Glycol (miraLAX) 17 gm PRN BID PRN PO CONSTIPATION; Start at 09:00 Spironolactone (Aldactone) 12.5 mg DAILY PO Last administered on 09/12/18 08: 42; Start 09/08/18 at 09:00 Enoxaparin Sodium (Lovenox 40mg Syringe) 40 mg DAILY SQ Last administered on at 08:30; Start 09/08/18 at 09:00; Stop 09/08/18 at 09:41; Status DC Albuterol/ Ipratropium (Duoneb) 3 ml RTQID NEB Last administered on 09/12/18at 09:31; Start 09/08/18 at 08:00 Multi-Ingred Cream/Lotion/Oil/ Oint (Hydrocerin) 1 oumou PRN Q1HR PRN TP DRY SKIN / SCALING; Start 09/07/18 at 22:15; Stop 09/10/18 at 10:25; Status DC Diclofenac Sodium (Voltaren) 1 oumou DAILY TP ; Start 09/08/18 at 09:00 Enoxaparin Sodium (Lovenox 40mg Syringe) 40 mg Q12H SQ Last administered on at 08:45; Start 09/08/18 at 21:00 Lactobacillus Rhamnosus (Culturelle) 1 cap BID PO Last administered on at 08:42; Start 09/08/18 at 21:00 Diltiazem HCl (Cardizem 24hr Cd) 120 mg DAILY PO Last administered on at 08:41; Start 09/08/18 at 11:45 Multi-Ingred Cream/Lotion/Oil/ Oint (Hydrocerin) 1 oumou PRN Q1HR PRN TP DRY SKIN / SCALING; Start 09/09/18 at 13:15 Lidocaine (Lidoderm) 1 patch DAILY TD ; Start 09/10/18 at 09:00; Stop 09/10/18 at 09:00; Status DC Miscellaneous (Lidoderm Patch Removal) 1 ea QHS MC Last administered on at 20:31; Start 09/09/18 at 21:00 Lidocaine (Lidoderm) 1 patch DAILY TD Last administered on 09/12/18at 08:44; Start 09/09/18 at 14:15 Fentanyl Citrate (Fentanyl 2ml Vial) 50 mcg PRN Q2HR PRN IV PAIN; Start at 14:45 Levofloxacin (Levaquin) 500 mg DAILY06 PO Last administered on 09/12/18at 05:07 ; Start 09/12/18 at 06:00 Active Scripts Active Reported Miralax (Polyethylene Glycol 3350) 119 Gm Powder 17 Gm PO PRN BID PRN LAST DOSE GIVEN: DATE: TIME: NEXT DOSE DUE: DATE: TIME: Cepacol Sore Throat Lozenge (Benzocaine/Menthol) 1 Each Lozenge 1 Each MM PRN Q2HR PRN LAST DOSE GIVEN: DATE: TIME: NEXT DOSE DUE: DATE: TIME: Tylenol (Acetaminophen) 325 Mg Tablet 650 Mg PO PRN Q6HRS PRN LAST DOSE GIVEN: DATE: TIME: NEXT DOSE DUE: DATE: TIME: Guaifenesin Dm Syrup (Guaifenesin/Dextromethorphan) 5 Ml Syrup 5 Ml PO PRN BID PRN LAST DOSE GIVEN: DATE: TIME: NEXT DOSE DUE: DATE: TIME: Benzonatate 100 Mg Capsule 100 Mg PO PRN BID PRN LAST DOSE GIVEN: DATE: TIME: NEXT DOSE DUE: DATE: TIME: Lantus Solostar (Insulin Glargine,Hum.rec.anlog) 100 Unit/1 Ml Insuln.pen 28 Unit SQ QHS LAST DOSE GIVEN: DATE: TIME: NEXT DOSE DUE: DATE: TIME: Duoneb 0.5-3(2.5) Mg/3 Ml (Albuterol/Ipratropium) 3 Ml Ampul.neb 3 Ml NEB QID LAST DOSE GIVEN: DATE: TIME: NEXT DOSE DUE: DATE: TIME: Fluticasone Propionate Nasal Gibson (Fluticasone Propionate) 16 Gm Gibson.susp 2 Gibson NS DAILY LAST DOSE GIVEN: DATE: TIME: NEXT DOSE DUE: DATE: TIME: Tylenol (Acetaminophen) 325 Mg Tablet 650 Mg PO HS LAST DOSE GIVEN: DATE: TIME: NEXT DOSE DUE: DATE: TIME: Tamsulosin Hcl 0.4 Mg Cap.er.24h 0.4 Mg PO DAILY LAST DOSE GIVEN: DATE: TIME: NEXT DOSE DUE: DATE: TIME: Spironolactone 25 Mg Tablet 12.5 Mg PO DAILY LAST DOSE GIVEN: DATE: TIME: NEXT DOSE DUE: DATE: TIME: Zoloft (Sertraline Hcl) 100 Mg Tablet 100 Mg PO DAILY LAST DOSE GIVEN: DATE: TIME: NEXT DOSE DUE: DATE: TIME: NICODERM CQ 21mg (Nicotine) 1 Each Patch.td24 1 Patch TD DAILY LAST DOSE GIVEN: DATE: TIME: NEXT DOSE DUE: DATE: TIME: Lisinopril 5 Mg Tablet 5 Mg PO DAILY LAST DOSE GIVEN: DATE: TIME: NEXT DOSE DUE: DATE: TIME: Novolog Flexpen (Insulin Aspart) 100 Unit/1 Ml Insuln.pen 12 Unit SQ TIDAC LAST DOSE GIVEN: DATE: TIME: NEXT DOSE DUE: DATE: TIME: Guaifenesin 400 Mg Tablet 400 Mg PO QID LAST DOSE GIVEN: DATE: TIME: NEXT DOSE DUE: DATE: TIME: Gabapentin (Gabapentin) 100 Mg Capsule 200 Mg PO BID LAST DOSE GIVEN: DATE: TIME: NEXT DOSE DUE: DATE: TIME: Furosemide 20 Mg Tablet 20 Mg PO DAILY LAST DOSE GIVEN: DATE: TIME: NEXT DOSE DUE: DATE: TIME: Lovenox (Enoxaparin Sodium) 40 Mg/0.4 Ml Disp.syrin 40 Mg SQ DAILY LAST DOSE GIVEN: DATE: TIME: NEXT DOSE DUE: DATE: TIME: Atorvastatin Calcium 40 Mg Tablet 40 Mg PO QHS LAST DOSE GIVEN: DATE: TIME: NEXT DOSE DUE: DATE: TIME: Aspir-Low (Aspirin) 81 Mg Tablet.dr 81 Mg PO DAILY LAST DOSE GIVEN: DATE: TIME: NEXT DOSE DUE: DATE: TIME: Amlodipine Besylate 10 Mg Tablet 10 Mg PO DAILY LAST DOSE GIVEN: DATE: TIME: NEXT DOSE DUE: DATE: TIME: Allopurinol 100 Mg Tablet 200 Mg PO DAILY LAST DOSE GIVEN: DATE: TIME: NEXT DOSE DUE: DATE: TIME: Vitals/I & O Vital Sign - Last 24 Hours 09/11/18 09/11/18 09/11/18 09/11/18 10:23 10:32 15:50 16:28 Temp 97.9 98.1 Pulse 87 79 Resp 22 22 B/P (MAP) 145/77 (99) 136/79 (98) Pulse Ox 96 95 95 5 O2 Delivery Room Air Room Air Room Air Room Air 09/11/18 09/11/18 09/11/18 09/11/18 19:45 20:00 20:46 23:41 Temp 98.1 98.2 Pulse 88 95 Resp 24 20 B/P (MAP) 135/79 (97) 159/84 (109) Pulse Ox 97 97 94 O2 Delivery Room Air Room Air Room Air Room Air 09/12/18 09/12/18 09/12/18 09/12/18 05:31 05:49 08:00 08:41 Temp 98.1 Pulse 74 74 Resp 24 B/P (MAP) 146/80 (102) 146/80 Pulse Ox 96 95 O2 Delivery Room Air Room Air Room Air O2 Flow Rate 1.0 09/12/18 09/12/18 08:41 09:31 Pulse 74 B/P (MAP) 146/80 Pulse Ox 96 O2 Delivery Room Air Intake and Output 09/11/18 09/11/18 09/12/18 15:01 23:01 07:01 Intake Total 720 ml 360 ml 240 ml Output Total 775 ml 800 ml Balance -55 ml 360 ml -560 ml HOWARD RODRIGUEZ [facility] [employer] Sep 12, 2018 10:20
== END 2018-09-12 10:25 | DRG 871 ==
LOC: ER 21:56 → 1 SOUTH 09-07 01:00
PROVIDERS: ADMIT Internal Medicine; ATTEND Internal Medicine
DX: A41.9 Sepsis, unspecified organism (principal); J96.22 Acute and chronic respiratory failure with hypercapnia; J96.21 Acute and chronic respiratory failure with hypoxia; J44.0 Chronic obstructive pulmonary disease with (acute) lower respiratory infection; I13.0 Hypertensive heart and chronic kidney disease with heart failure and stage 1 through stage 4 chronic kidney disease, or unspecified chronic kidney disease; I69.354 Hemiplegia and hemiparesis following cerebral infarction affecting left non-dominant side; J44.1 Chronic obstructive pulmonary disease with (acute) exacerbation; Z68.42 Body mass index [BMI] 45.0-49.9, adult; J20.9 Acute bronchitis, unspecified; E11.22 Type 2 diabetes mellitus with diabetic chronic kidney disease; E66.01 Morbid (severe) obesity due to excess calories; F39 Unspecified mood [affective] disorder; G47.33 Obstructive sleep apnea (adult) (pediatric); M10.9 Gout, unspecified; M19.90 Unspecified osteoarthritis, unspecified site; I25.10 Atherosclerotic heart disease of native coronary artery without angina pectoris; I48.0 Paroxysmal atrial fibrillation; I50.9 Heart failure, unspecified; K21.9 Gastro-esophageal reflux disease without esophagitis; N18.3 Chronic kidney disease, stage 3 (moderate); N28.1 Cyst of kidney, acquired; N40.0 Benign prostatic hyperplasia without lower urinary tract symptoms; Z72.0 Tobacco use; Z82.49 Family history of ischemic heart disease and other diseases of the circulatory system; Z83.3 Family history of diabetes mellitus; Z88.8 Allergy status to other drugs, medicaments and biological substances; Z88.0 Allergy status to penicillin
CPT/HCPCS: 36415; 71045; 71101; 74176; 80048; 80053; 80076; 82150; 82550; 82803; 82947; 83605; 83690; 83735; 83880; 84484; 85025; 85027; 85610; 85730; 87040; 87070; 87205; 87493; 87641; 93005; 93306; 94640; 96361; 96365; 96375; 99406; J1650; J1815; J1956; J2405; J3490; J7120; J7620; 97110; 97116; 97530; 99285-25; J7030